=== PATIENT | female | born 1950 | race Hispanic/Latino ===

== ENCOUNTER 2019-04-18 13:31 | Inpatient (IN) | payer MEDICARE ==
--- NOTE | 2019-04-18 13:48 | Emergency Department Report ---
ED General Adult HPI - General Chief complaint: Weakness Stated complaint: AMS Time Seen by Provider: 04/18/19 13:45 Source: family, EMS (verbal report received from emergency medical services. EMS documentation not available at this time for review), RN notes reviewed Mode of arrival: Stretcher Limitations: Altered Mental Status, Physical Limitation - History of Present Illness Initial comments: Primary care DrDian: Dr. Marlow Nephrology: Gucci Patient is a 68-year-old female, on hemodialysis, end-stage renal disease, brought to the hospital by EMS for lethargy, decreased responsiveness, weakness. Last known well time 3 days ago. Patient altered, not able to provide additional history. Daughters are at the bedside, the indicates they're not quite sure of the qualitative nature of her symptoms, exacerbating or relieving factors. Upon arrival to the emergency room, patient was altered, nonverbal, with no gag reflex, and dry mucous membranes. I strongly recommended endotracheal intubation. Patient's daughters have declined this intervention. The risks of not placing an advanced airway, including aspiration, , disability, paralysis, loss of quality of life, discussed with both the patient's daughters. However, they have made a decision to provide informed refusal for endotracheal intubation. They are amenable to IV fluids, antibiotics and supportive care otherwise. They also signed a DO NOT RESUSCITATE, DO NOT INTUBATE. This entire conversation was witnessed by multiple nurses, including Claudia Sharma, and Mariaelena To. At the moment, patient is resting on her stretcher, head of bed elevated, on a nonrebreather, not able to provide additional information or history. -: days(s) Quality: other Consistency: other Improves with: other Worsens with: other Associated Symptoms: other - Related Data Allergies Allergy/AdvReac Type Severity Reaction Status Date / Time Insulins Allergy Hives Verified 04/18/19 14:15 iron Allergy Hives Verified 04/18/19 14:15 isosorbide Allergy Hives Verified 04/18/19 14:15 ondansetron [From Zofran] Allergy Hives Verified 04/18/19 14:15 ED Review of Systems ROS: Stated complaint: AMS Other details as noted in HPI Comment: Unobtainable due to pts medical conditions ED Physical Exam - General Limitations: Altered Mental Status General appearance: obtunded - Head Head exam: Present: atraumatic, normocephalic - ENT ENT exam: Present: mucous membranes dry - Neck Neck exam: Present: normal inspection - Respiratory Respiratory exam: Present: decreased breath sounds. Absent: wheezes, rales, rhonchi, stridor - Cardiovascular Cardiovascular Exam: Present: normal rhythm, tachycardia. Absent: bradycardia - GI/Abdominal GI/Abdominal exam: Present: soft. Absent: distended, tenderness, guarding, rebound, rigid, pulsatile mass - Extremities Exam Extremities exam: Present: other (pulses appreciated in the bilateral upper and lower extremities. There is a right upper extremity fistula, with no redness, pus or streaking). Absent: pedal edema, calf tenderness - Back Exam Back exam: Absent: tenderness, CVA tenderness (R), paraspinal tenderness, vertebral tenderness - Neurological Exam Neurological exam: Present: altered, other (nonverbal, does not move arms or l egs, does not open eyes spontaneously) - Psychiatric Psychiatric exam: Present: other (the patient is nonverbal) - Skin Skin exam: Present: dry ED Course Vital Signs 04/18/19 04/18/19 04/18/19 13:40 13:46 14:01 Temperature Pulse Rate 133 H 126 H 132 H Respiratory 19 19 38 H Rate Blood Pressure 150/70 140/57 O2 Sat by Pulse 96 Oximetry 04/18/19 04/18/19 04/18/19 14:15 14:22 14:30 Temperature 101.7 F H Pulse Rate 128 H 123 H Respiratory 41 H 38 H Rate Blood Pressure 155/70 148/64 O2 Sat by Pulse 95 95 Oximetry 04/18/19 04/18/19 04/18/19 14:45 15:00 15:15 Temperature Pulse Rate 116 H 110 H 108 H Respiratory 37 H 29 H 33 H Rate Blood Pressure 148/64 142/49 142/49 O2 Sat by Pulse 94 97 99 Oximetry 04/18/19 04/18/19 04/18/19 15:31 15:45 16:19 Temperature Pulse Rate 115 H 114 H 108 H Respiratory 41 H 36 H 14 Rate Blood Pressure 161/71 161/71 161/71 O2 Sat by Pulse 97 99 Oximetry 04/18/19 04/18/19 04/18/19 16:30 16:45 17:11 Temperature 99.8 F H Pulse Rate 108 H 107 H Respiratory 34 H 35 H Rate Blood Pressure 156/69 156/69 O2 Sat by Pulse 72 L 98 Oximetry - Reevaluation(s) Reevaluation #1: 04/18/19 15:05 Differential diagnosis, including but not limited to: Pneumonia, urinary tract infection, intracranial hemorrhage, bacteremia, viremia, uremic encephalopathy Assessment and plan: 68-year-old female, with a signed DO NOT RESUSCITATE, DO NOT INTUBATE with family, found to be tachycardic, febrile, concerning for sepsis. Patient will be resuscitated according to the sepsis pathway. Antibiotics ordered, CT scan brain, abdomen and pelvis ordered. Urinalysis is pending at this time. Nephrology consultation is pending at this time. Prognosis is guarded. Reevaluation #2: 04/18/19 15:31 dw/ renal vest front presser Dr Aimee Palacios awaiting ct results Reevaluation #3: 04/18/19 17:34 CT scan brain negative for acute disease. CT scan abdomen and pelvis is negative for acute disease. Respiratory effort has improved. Patient still unchanged neurologically. Extensive discussion had with family. We discussed diagnostics, and potential for spinal tap. At this point time, family does not want a spinal tap. We discussed implications of this decision. They are still amenable to hospitalization, fluids and antibiotic therapy. Family has provided informed refusal/decline of spinal tap procedure. Case was in the hospital physician, Dr. Adrian Esteves, who accepts the patient. ED Medical Decision Making - Lab Data Result diagrams: 04/18/19 13:56 04/18/19 13:56 Vital Signs 04/18/19 04/18/19 04/18/19 13:40 13:46 14:01 Temperature Pulse Rate 133 H 126 H 132 H Respiratory 19 19 38 H Rate Blood Pressure 150/70 140/57 O2 Sat by Pulse 96 Oximetry 04/18/19 04/18/19 14:15 14:22 Temperature 101.7 F H Pulse Rate 128 H Respiratory 41 H Rate Blood Pressure 155/70 O2 Sat by Pulse 95 Oximetry Lab Results 04/18/19 04/18/19 04/18/19 Range/Units 13:56 13:56 14:14 WBC 18.3 H (4.5-11.0) K/mm3 RBC 5.19 H (3.65-5.03) M/mm3 Hgb 14.4 H (10.1-14.3) gm/dl Hct 45.4 H (30.3-42.9) % MCV 88 (79-97) fl MCH 28 (28-32) pg MCHC 32 (30-34) % RDW 18.2 H (13.2-15.2) % Plt Count 406 (140-440) K/mm3 Seg Neutrophils % [employer]er APTT 26.7 (24.2-36.6) Sec. ABG pH 7.330 L (7.350-7.450) pH Units ABG pCO2 46.7 mm Hg ABG pO2 98.6 H (80.0-90.0) mm Hg ABG HCO3 24.0 (20.0-26.0) mmol/L ABG O2 Saturation 97.0 (95.0-99.0) % ABG O2 Content 19.6 (0.0-44) ABG Base Excess -2.2 L (-2.0-3.0) mmol/L ABG Hemoglobin 14.6 (12.0-16.0) gm/dl ABG Carboxyhemoglobin 1.2 (0.0-5.0) % ABG Methemoglobin 0.6 (0.0-1.5) % Oxyhemoglobin 95.3 (95.0-99.0) % FiO2 100 % POC Glucose (70-105) 04/18/19 Range/Units 14:16 WBC (4.5-11.0) K/mm3 RBC (3.65-5.03) M/mm3 Hgb (10.1-14.3) gm/dl Hct (30.3-42.9) % MCV (79-97) fl MCH (28-32) pg MCHC (30-34) % RDW (13.2-15.2) % Plt Count (140-440) K/mm3 Seg Neutrophils % APTT (24.2-36.6) Sec. ABG pH (7.350-7.450) pH Units ABG pCO2 mm Hg ABG pO2 (80.0-90.0) mm Hg ABG HCO3 (20.0-26.0) mmol/L ABG O2 Saturation (95.0-99.0) % ABG O2 Content (0.0-44) ABG Base Excess (-2.0-3.0) mmol/L ABG Hemoglobin (12.0-16.0) gm/dl ABG Carboxyhemoglobin (0.0-5.0) % ABG Methemoglobin (0.0-1.5) % Oxyhemoglobin (95.0-99.0) % FiO2 % POC Glucose 214 H (70-105) - EKG Data Rate: tachycardia - EKG Data When compared to previous EKG there are: previous EKG unavailable - Radiology Data Radiology results: image reviewed interpreted by me: xr chest: no acute disease Critical Care Time: Yes Critical care time in (mins) excluding proc time.: 35 Critical care attestation.: If time is entered above; I have spent that time in minutes in the direct care of this critically ill patient, excluding procedure time. ED Disposition Clinical Impression: Sepsis, Uremic encephalopathy, ESRD (end stage renal disease), Hypernatremia Disposition: DC-[id number] OP ADMIT IP TO THIS HOSP Is pt being admited?: Yes Condition: Serious
[2019-04-18] MEDS ORDERED: SODIUM CHLORIDE 0.9% 1000 ML IV SOLN IV ONE (13:51)
[2019-04-18] MEDS ORDERED: DEXTROSE 50% IN WATER (25GM) 50 ML SYRINGE IV SCH (14:00)
[2019-04-18 14:19] LABS: Hematocrit 45.4 % (30.3-42.9); Hemoglobin 14.4 gm/dl (10.1-14.3); Mean Corpuscular HGB Conc 32 % (30-34); Mean Corpuscular Volume 88 fl (79-97); Platelet Count 406 K/mm3 (140-440); Red Blood Count 5.19 M/mm3 (3.65-5.03); Red Cell Distribution Width 18.2 % (13.2-15.2)
[2019-04-18 14:27] LABS: ABG Base Excess -2.2 mmol/L (-2.0-3.0); ABG Methemoglobin 0.6 % (0.0-1.5); ABG PCO2 46.7 mm Hg; ABG PH 7.33 pH Units (7.350-7.450); ABG PO2 98.6 mm Hg (80.0-90.0)
[2019-04-18 14:32] LABS: Partial Thromboplastin Time 26.7 Sec. (24.2-36.6)
[2019-04-18 14:40] LABS: Albumin 3.6 g/dL (3.9-5); Calcium 10.9 mg/dL (8.4-10.2)
[2019-04-18 14:42] LABS: INR 1.2 (0.87-1.13)
[2019-04-18] MEDS ORDERED: ACETAMINOPHEN 650 MG RECT SUPP PR ONE (14:49)
[2019-04-18] MEDS ORDERED: cefTRIAXone/NS 2 GM/100 ML 2 GM/100 ML BAG IV ONE (15:00)
--- NOTE | 2019-04-18 15:10 | XRay Report ---
CHEST 1 VIEW 04/18/2019 2:23 PM INDICATION / CLINICAL INFORMATION: Altered Mental Status. COMPARISON: None available. FINDINGS: SUPPORT DEVICES: None. HEART / MEDIASTINUM: No significant abnormality. LUNGS / PLEURA: No significant pulmonary or pleural abnormality. No pneumothorax. ADDITIONAL FINDINGS: There is severe generalized atherosclerosis. Degenerative changes are seen throu ghout the spine. No significant additional findings. IMPRESSION: 1. No acute abnormality of the chest. Signer Name: Ruben Scruggs MD Signed: 04/18/2019 3:06 PM Workstation Name: [id number]
[2019-04-18 15:25] LABS: Chol/HDL Ratio 8.93 %
[2019-04-18 17:05] LABS: Bilirubin,Urine NEG (Negative); Blood,Urine NEG (Negative); Color,Urine Yellow (Yellow); Urobilinogen,Urine < 2.0 mg/dL (<2.0)
[2019-04-18 17:08] LABS: Amphetamine Screen,Urine PRESUMPTIVE NEGATIVE; Benzodiazepines Screen,Urine PRESUMPTIVE NEGATIVE; Cannabinoid Screen,Urine PRESUMPTIVE NEGATIVE; Cocaine Screen,Urine PRESUMPTIVE NEGATIVE; Methadone Screen,Urine PRESUMPTIVE NEGATIVE; Opiate Screen,Urine PRESUMPTIVE NEGATIVE
--- NOTE | 2019-04-18 17:18 | Cat Scan Report ---
CT BRAIN: 04/18/2019 INDICATION / CLINICAL INFORMATION: Altered Mental Status. COMPARISON: None available. FINDINGS: BRAIN/INTRACRANIAL STRUCTURES: Unenhanced CT images of the brain demonstrate pronounced diffuse cereb ral atrophy, associated with extensive chronic white matter hypoattenuation. Numerous chronic appeari ng foci of lacunar changes are present in the basal ganglia and thalami bilaterally. There is evidence of some cortical edema in the left lateral inferior frontal lobe, possibly extendin g into the anterior insula cortex, over an area of approximately 4 cm, which may be evidence of acute or recent cortical ischemic injury. This could be further evaluated with MRI as necessary. There is no evidence of hemorrhage. Atherosclerotic vascular calcifications are present in the distal internal carotid arteries and verte bral arteries. EXTRACRANIAL STRUCTURES: Unremarkable. IMPRESSION: 1. Extensive diffuse cerebral atrophy and chronic white matter signal change. 2. Possible recent or acute left frontal cortical infarct. All CT scans at this location are performed using dose reduction to ALARA by means of automated expos ure control. Signer Name: Mateo Patino MD Signed: 04/18/2019 5:13 PM Workstation Name: [id number]
--- NOTE | 2019-04-18 17:20 | Cat Scan Report ---
CT ABDOMEN AND PELVIS WITHOUT CONTRAST INDICATION: Sepsis. Altered mental status. Weakness. COMPARISON: No relevant prior imaging study available. TECHNIQUE: Axial, coronal and sagittal CT imaging of the abdomen and pelvis was performed without co ntrast. Lack of intravenous contrast limits evaluation of the vascular and solid organs. All CT sca ns at this location are performed using CT dose reduction for ALARA by means of automated exposure co ntrol. FINDINGS: LOWER CHEST: Right basilar atelectasis is noted. There is diffuse coronary atherosclerosis and mild t horacic aortic atherosclerosis. No additional significant abnormality. LIVER: No significant abnormality. BILIARY: Cholelithiasis is seen without evidence of acute cholecystitis. No biliary ductal dilatation . PANCREAS: No significant abnormality. SPLEEN: No significant abnormality. ADRENALS: The right adrenal gland is unremarkable. There is a left adrenal myelolipoma measuring 1.9 x 1.8 cm. KIDNEYS AND URETERS: Bilateral renal cysts measure up to 2.7 cm on the right and 2.5 cm on the left. No additional significant abnormality. GI TRACT: No significant abnormality of the stomach, small bowel or colon. The appendix is not seen. PERITONEUM: No free fluid. No free air. No fluid collection. LYMPH NODES: No significant adenopathy. VASCULATURE: The aorta is normal in caliber. There is severe generalized atherosclerosis. URINARY BLADDER: No significant abnormality. REPRODUCTIVE ORGANS: Mild enlargement of the uterus may be secondary to uterine fibroids. No addition al significant abnormality. ADDITIONAL FINDINGS: None. SKELETAL SYSTEM: No acute abnormality. Mild degenerative changes are seen along the spine and SI join ts. IMPRESSION: 1. No acute abnormality of the abdomen or pelvis. 2. Additional findings as above. Signer Name: Ruben Scruggs MD Signed: 04/18/2019 5:16 PM Workstation Name: [id number]
[2019-04-18 17:24] LABS: Mucus,Urine Few /HPF
[2019-04-18 19:53] LABS: Basophils % (Manual) 0 % (0.0-1.8); Eosinophils % (Manual) 0 % (0.0-4.3); Stomatocytes Few; Total Cells Counted 100
[2019-04-18 19:54] LABS: Platelet Estimate Consistent w Auto
[2019-04-18] MEDS ORDERED: METOCLOPRAMIDE 10 MG/2 ML INJ IV PRN ×2 (22:54→23:01)
[2019-04-18] MEDS ORDERED: MORPHINE 2 MG/1 ML INJ IV PRN (22:54)
[2019-04-18] MEDS ORDERED: ACETAMINOPHEN 325 MG TAB PO PRN (22:54)
[2019-04-18] MEDS ORDERED: ONDANSETRON 4 MG/2 ML INJ IV PRN (22:54)
[2019-04-18] MEDS ORDERED: HYDROmorphone 1 MG/1 ML INJ IV PRN (22:54)
[2019-04-19] MEDS ORDERED: SODIUM CHLORIDE 0.9% 250ML 250 ML IV ONE (00:24)
[2019-04-19] MEDS: DEXTROSE 5% IN WATER 1,000 ML IV SCH (00:46)
[2019-04-19 05:04] LABS: Mean Corpuscular HGB Conc 31 % (30-34); Mean Corpuscular Volume 91 fl (79-97); Platelet Count 294 K/mm3 (140-440); Red Blood Count 5.03 M/mm3 (3.65-5.03); Red Cell Distribution Width 18.8 % (13.2-15.2)
[2019-04-19 05:27] LABS: Hematocrit 45.6 % (30.3-42.9)
[2019-04-19 06:41] LABS: Basophils % (Manual) 0 % (0.0-1.8); Eosinophils % (Manual) 0 % (0.0-4.3); Total Cells Counted 100
[2019-04-19 06:42] LABS: Ovalocytes Rare; Platelet Estimate Consistent w Auto; Schistocytes Rare
--- NOTE | 2019-04-19 07:18 | History and Physical Report ---
History of Present Illness Date of examination: 04/18/19 Date of admission: 04/18/19 17:40 Chief complaint: Decreased rtesponsiveness 1 week History of present illness: Patient is a 68-year-old female, on hemodialysis, end-stage renal disease, brought to the hospital by EMS for lethargy, decreased responsiveness, weakness. Last known well time 3 days ago. Patient altered, not able to provide additional history. Daughters are at the bedside, the indicates they're not quite sure of the qualitative nature of her symptoms, exacerbating or relieving factors. Upon arrival to the emergency room, patient was altered, nonverbal, with no gag reflex, and dry mucous membranes. Patient apparently had CVA with Lt side weakness and near aphasic.Apparently daughters were carrying from bed to wheel chair and transferring to car for taking to HD.Also feeding the patient every day.Patient apparently says yes or no and smiles sometimes. Has deteriorated over last one week and not eating at all.Became more lethargic.Fever today Family wants DNR. Past History Past Medical History: hypertension, stroke Past Surgical History: No surgical history Social history: lives with family, AND/DNR-allow natural Family history: hypertension Medications and Allergies Allergies Allergy/AdvReac Type Severity Reaction Status Date / Time Insulins Allergy Hives Verified 04/18/19 14:15 iron Allergy Hives Verified 04/18/19 14:15 isosorbide Allergy Hives Verified 04/18/19 14:15 ondansetron [From Zofran] Allergy Hives Verified 04/18/19 14:15 Active Meds: Active Medications Acetaminophen (Tylenol) 650 mg PO Q4H PRN PRN Reason: Pain MILD(1-3)/Fever >100.5/MCDANIELS Dextrose (D50w (25gm) Syringe) 50 ml IV PRN TRINA Famotidine (Pepcid) 10 mg IV BID TRINA Hydromorphone HCl (Dilaudid) 0.5 mg IV Q3H PRN PRN Reason: Pain , Severe (7-10) Dextrose (D5w) 1,000 mls @ 75 mls/hr IV DIRECT TRINA Last Admin: 04/19/19 00:46 Dose: 75 mls/hr Documented by: Ceftriaxone Sodium (Rocephin/Ns 1 Gm/50 Ml) 1 gm in 50 mls @ 100 mls/hr IV Q24HR [facility]; Protocol Metoclopramide HCl (Reglan) 2.5 mg IV Q6H PRN PRN Reason: Nausea And Vomiting Last Admin: 04/19/19 01:29 Dose: 2.5 mg Documented by: Morphine Sulfate (Morphine) 2 mg IV Q4H PRN PRN Reason: Pain, Moderate (4-6) Sodium Chloride (Sodium Chloride Flush Syringe 10 Ml) 10 ml IV BID TRINA Sodium Chloride (Sodium Chloride Flush Syringe 10 Ml) 10 ml IV PRN PRN PRN Reason: LINE FLUSH Review of Systems All systems: negative Constitutional: weight loss, weakness, poor appetite, daytime sleepiness Ears, nose, mouth and throat: deferred Breasts: deferred Cardiovascular: no chest pain, no orthopnea, no palpitations, no rapid/irregular heart beat, no edema, no syncope Respiratory: no cough, no cough with sputum, no excessive sputum, no hemoptysis, no shortness of breath, no dyspnea on exertion Gastrointestinal: other (Difficulty swallowing), no abdominal pain, no nausea, no vomiting, no diarrhea, no constipation, no change in bowel habits, no hematemesis, no coffee ground emesis Genitourinary Female: no dysuria, no urinary frequency Menstruation: ammenorrhea Rectal: no pain Musculoskeletal: no neck stiffness, no neck pain, no shooting arm pain Integumentary: no rash, no pruritis, no redness Neurological: aphasia, gait dysfunction, motor disturbance, paralysis (LEFT Hemiplegia) Psychiatric: change in appetite Endocrine: no cold intolerance Hematologic/Lymphatic: no easy bruising Allergic/Immunologic: no urticaria, no allergic rhinitis, no wheezing Exam - Constitutional Vitals: Temp Pulse Resp BP Pulse Ox 97.3 F L 109 H 16 137/17 95 04/19/19 00:03 04/18/19 19:41 04/19/19 00:03 04/19/19 00:03 04/19/19 00:13 General appearance: Present: no acute distress, well-nourished - EENT Eyes: Present: PERRL ENT: hearing intact, clear oral mucosa - Neck Neck: Present: supple, normal ROM - Respiratory Respiratory effort: normal Respiratory: bilateral: CTA - Cardiovascular Heart rate: 78 Rhythm: regular Heart Sounds: Present: S1 & S2. Absent: rub, click - Extremities Extremities: no ischemia, pulses intact, pulses symmetrical, No edema Peripheral Pulses: within normal limits - Abdominal General gastrointestinal: Present: soft, non-tender, non-distended, normal bowel sounds Female genitourinary: Present: normal - Integumentary Integumentary: Present: clear, warm, dry - Musculoskeletal Musculoskeletal: left sided weakness - Psychiatric Psychiatric: other (Decreased responsiveness) - Neurologic Neurologic: CNII-XII intact, focal deficits - Allied Health Allied health notes reviewed: nursing, case management Results - Labs CBC & Chem 7: 04/19/19 03:45 04/18/19 13:56 Labs: Laboratory Last Values WBC 28.7 K/mm3 (4.5-11.0) H 04/19/19 03:45 RBC 5.03 M/mm3 (3.65-5.03) 04/19/19 03:45 Hgb 14.0 gm/dl (10.1-14.3) 04/19/19 03:45 Hct 45.6 % (30.3-42.9) H 04/19/19 03:45 MCV 91 fl (79-97) 04/19/19 03:45 MCH 28 pg (28-32) 04/19/19 03:45 MCHC 31 % (30-34) 04/19/19 03:45 RDW 18.8 % (13.2-15.2) H 04/19/19 03:45 Plt Count 294 K/mm3 (140-440) 04/19/19 03:45 Add Manual Diff Complete 04/19/19 03:45 Total Counted 100 04/19/19 03:45 Seg Neutrophils % Wan Support Specialist 04/18/19 13:56 Seg Neuts % (Manual) 90.0 % (40.0-70.0) H 04/19/19 03:45 Band Neutrophils % 0 % 04/19/19 03:45 Lymphocytes % (Manual) 3.0 % (13.4-35.0) L 04/19/19 03:45 Reactive Lymphs % (Man) 0 % 04/19/19 03:45 Monocytes % (Manual) 7.0 % (0.0-7.3) 04/19/19 03:45 Eosinophils % (Manual) 0 % (0.0-4.3) 04/19/19 03:45 Basophils % (Manual) 0 % (0.0-1.8) 04/19/19 03:45 Metamyelocytes % 0 % 04/19/19 03:45 Myelocytes % 0 % 04/19/19 03:45 Promyelocytes % 0 % 04/19/19 03:45 Blast Cells % 0 % 04/19/19 03:45 Nucleated RBC % Not Reportable 04/19/19 03:45 Seg Neutrophils # Man 25.8 K/mm3 (1.8-7.7) H 04/19/19 03:45 Band Neutrophils # 0.0 K/mm3 04/19/19 03:45 Lymphocytes # (Manual) 0.9 K/mm3 (1.2-5.4) L 04/19/19 03:45 Abs React Lymphs (Man) 0.0 K/mm3 04/19/19 03:45 Monocytes # (Manual) 2.0 K/mm3 (0.0-0.8) H 04/19/19 03:45 Eosinophils # (Manual) 0.0 K/mm3 (0.0-0.4) 04/19/19 03:45 Basophils # (Manual) 0.0 K/mm3 (0.0-0.1) 04/19/19 03:45 Metamyelocytes # 0.0 K/mm3 04/19/19 03:45 Myelocytes # 0.0 K/mm3 04/19/19 03:45 Promyelocytes # 0.0 K/mm3 04/19/19 03:45 Blast Cells # 0.0 K/mm3 04/19/19 03:45 WBC Morphology Not Reportable 04/19/19 03:45 Hypersegmented Neuts Not Reportable 04/19/19 03:45 Hyposegmented Neuts Not Reportable 04/19/19 03:45 Hypogranular Neuts Not Reportable 04/19/19 03:45 Smudge Cells Not Reportable 04/19/19 03:45 Toxic Granulation Not Reportable 04/19/19 03:45 Toxic Vacuolation Not Reportable 04/19/19 03:45 Dohle Bodies Not Reportable 04/19/19 03:45 Pelger-Huet Anomaly Not Reportable 04/19/19 03:45 Troy Rods Not Reportable 04/19/19 03:45 Platelet Estimate Consistent w auto 04/19/19 03:45 Clumped Platelets Not Reportable 04/19/19 03:45 Plt Clumps, EDTA Not Reportable 04/19/19 03:45 Large Platelets Not Reportable 04/19/19 03:45 Giant Platelets Not Reportable 04/19/19 03:45 Platelet Satelliting Not Reportable 04/19/19 03:45 Plt Morphology Comment Not Reportable 04/19/19 03:45 RBC Morphology Not Reportable 04/19/19 03:45 Dimorphic RBCs Not Reportable 04/19/19 03:45 Polychromasia Not Reportable 04/19/19 03:45 Hypochromasia Not Reportable 04/19/19 03:45 Poikilocytosis Not Reportable 04/19/19 03:45 Anisocytosis Not Reportable 04/19/19 03:45 Microcytosis Not Reportable 04/19/19 03:45 Macrocytosis Not Reportable 04/19/19 03:45 Spherocytes Not Reportable 04/19/19 03:45 Pappenheimer Bodies Not Reportable 04/19/19 03:45 Sickle Cells Not Reportable 04/19/19 03:45 Target Cells Not Reportable 04/19/19 03:45 Tear Drop Cells Not Reportable 04/19/19 03:45 Ovalocytes Rare 04/19/19 03:45 Stomatocytes Few 04/18/19 13:56 Helmet Cells Not Reportable 04/19/19 03:45 Das-Lithium Bodies Not Reportable 04/19/19 03:45 [place] Rings Not Reportable 04/19/19 03:45 [place] Cells Not Reportable 04/19/19 03:45 Bite Cells Not Reportable 04/19/19 03:45 Crenated Cell Not Reportable 04/19/19 03:45 Elliptocytes Not Reportable 04/19/19 03:45 Acanthocytes (Spur) Not Reportable 04/19/19 03:45 Rouleaux Not Reportable 04/19/19 03:45 Hemoglobin C Crystals Not Reportable 04/19/19 03:45 Schistocytes Rare 04/19/19 03:45 Malaria parasites Not Reportable 04/19/19 03:45 Cornell Bodies Not Reportable 04/19/19 03:45 Hem Pathologist Commnt No 04/19/19 03:45 PT 15.4 Sec. (12.2-14.9) H 04/18/19 13:56 INR 1.20 (0.87-1.13) H 04/18/19 13:56 APTT 26.7 Sec. (24.2-36.6) 04/18/19 13:56 ABG pH 7.330 pH Units (7.350-7.450) L 04/18/19 14:14 ABG pCO2 46.7 mm Hg 04/18/19 14:14 ABG pO2 98.6 mm Hg (80.0-90.0) H 04/18/19 14:14 ABG HCO3 24.0 mmol/L (20.0-26.0) 04/18/19 14:14 ABG O2 Saturation 97.0 % (95.0-99.0) 04/18/19 14:14 ABG O2 Content 19.6 (0.0-44) 04/18/19 14:14 ABG Base Excess -2.2 mmol/L (-2.0-3.0) L 04/18/19 14:14 ABG Hemoglobin 14.6 gm/dl (12.0-16.0) 04/18/19 14:14 ABG Carboxyhemoglobin 1.2 % (0.0-5.0) 04/18/19 14:14 ABG Methemoglobin 0.6 % (0.0-1.5) 04/18/19 14:14 Oxyhemoglobin 95.3 % (95.0-99.0) 04/18/19 14:14 FiO2 100 % 04/18/19 14:14 Sodium 163 mmol/L (137-145) H* 04/18/19 13:56 Potassium 4.5 mmol/L (3.6-5.0) 04/18/19 13:56 Chloride 119.7 mmol/L (98-107) H 04/18/19 13:56 Carbon Dioxide 20 mmol/L (22-30) L 04/18/19 13:56 Anion Gap 28 mmol/L 04/18/19 13:56 BUN 117 mg/dL (7-17) H 04/18/19 13:56 Creatinine 7.0 mg/dL (0.7-1.2) H 04/18/19 13:56 Estimated GFR 6 ml/min 04/18/19 13:56 BUN/Creatinine Ratio 17 % 04/18/19 13:56 Glucose 235 mg/dL (65-100) H 04/18/19 13:56 POC Glucose 214 (70-105) H 04/18/19 14:16 Hemoglobin A1c 5.8 % (4-6) 04/19/19 00:04 Lactic Acid 1.70 mmol/L (0.7-2.0) 04/18/19 16:24 Calcium 10.9 mg/dL (8.4-10.2) H 04/18/19 13:56 Magnesium 3.20 mg/dL (1.7-2.3) H 04/18/19 13:56 Total Bilirubin 0.70 mg/dL (0.1-1.2) 04/18/19 13:56 AST 147 units/L (5-40) H 04/18/19 13:56 ALT 169 units/L (7-56) H 04/18/19 13:56 Alkaline Phosphatase 98 units/L (35-129) 04/18/19 13:56 Ammonia 78.0 umol/L (25-60) H 04/19/19 00:04 Total Creatine Kinase 94 units/L (30-135) 04/18/19 13:56 Troponin T 2.840 ng/mL (0.00-0.029) H* 04/18/19 13:56 Total Protein 7.4 g/dL (6.3-8.2) 04/18/19 13:56 Albumin 3.6 g/dL (3.9-5) L 04/18/19 13:56 Albumin/Globulin Ratio 0.9 % 04/18/19 13:56 Triglycerides 289 mg/dL (2-149) H 04/18/19 13:56 Cholesterol 259 mg/dL (50-199) H 04/18/19 13:56 LDL Cholesterol Direct 166 mg/dL (50-130) H 04/18/19 13:56 HDL Cholesterol 29 mg/dL (40-59) L 04/18/19 13:56 Cholesterol/HDL Ratio 8.93 % 04/18/19 13:56 TSH 0.322 mlU/mL (0.270-4.200) 04/18/19 13:56 Free T4 1.33 ng/dL (0.76-1.46) 04/18/19 13:56 Urine Color Yellow (Yellow) 04/18/19 16:37 Urine Turbidity Cloudy (Clear) 04/18/19 16:37 Urine pH 5.0 (5.0-7.0) 04/18/19 16:37 Ur Specific [place] 1.014 (1.003-1.030) 04/18/19 16:37 Urine Protein 100 mg/dl mg/dL (Negative) 04/18/19 16:37 Urine Glucose (UA) 50 mg/dL (Negative) 04/18/19 16:37 Urine Ketones Neg mg/dL (Negative) 04/18/19 16:37 Urine Blood Neg (Negative) 04/18/19 16:37 Urine Nitrite Neg (Negative) 04/18/19 16:37 Urine Bilirubin Neg (Negative) 04/18/19 16:37 Urine Urobilinogen < 2.0 mg/dL (<2.0) 04/18/19 16:37 Ur Leukocyte Esterase Neg (Negative) 04/18/19 16:37 Urine WBC (Auto) 1.0 /HPF (0.0-6.0) 04/18/19 16:37 Urine RBC (Auto) 1.0 /HPF (0.0-6.0) 04/18/19 16:37 U Epithel Cells (Auto) 9.0 /HPF (0-13.0) 04/18/19 16:37 Urine Mucus Few /HPF 04/18/19 16:37 Salicylates < 0.3 mg/dL (2.8-20.0) L 04/18/19 13:56 Urine Opiates Screen Presumptive negative 04/18/19 16:37 Urine Methadone Screen Presumptive negative 04/18/19 16:37 Acetaminophen < 5.0 ug/mL (10.0-30.0) L 04/18/19 13:56 Ur Barbiturates Screen Presumptive negative 04/18/19 16:37 Ur Phencyclidine Scrn Presumptive negative 04/18/19 16:37 Ur Amphetamines Screen Presumptive negative 04/18/19 16:37 U Benzodiazepines Scrn Presumptive negative 04/18/19 16:37 Urine Cocaine Screen Presumptive negative 04/18/19 16:37 U Marijuana (THC) Screen Presumptive negative 04/18/19 16:37 Drugs of Abuse Note Disclamer 04/18/19 16:37 Plasma/Serum Alcohol < 0.01 % (0-0.07) 04/18/19 13:56 Blood Type A POSITIVE 04/18/19 13:56 Antibody Screen Negative 04/18/19 13:56 - Imaging and Cardiology EKG: report reviewed Chest x-ray: report reviewed (NAF) CT scan - abdomen: report reviewed (NAF) Imaging and Cardiology: Head CT IMPRESSION: 1. Extensive diffuse cerebral atrophy and chronic white matter signal change. 2. Possible recent or acute left frontal cortical infarct. Assessment and Plan Advance Directives: Yes (DNR) VTE prophylaxis?: Chemical Plan of care discussed with patient/family: Yes - Patient Problems (1) Acute encephalopathy Current Visit: Yes Status: Acute Plan to address problem: Multifactorial Acute CVA? Uremia (2) Acute CVA (cerebrovascular accident) Current Visit: Yes Status: Acute Plan to address problem: CVA w/u (3) Dysphagia Current Visit: Yes Status: Acute Qualifiers: Dysphagia type: oral phase Qualified Code(s): R13.11 - Dysphagia, oral phase Plan to address problem: MBS ordered Discussed PEG tube (4) ESRD (end stage renal disease) Current Visit: Yes Status: Chronic Plan to address problem: Cont HD (5) Hypernatremia Current Visit: Yes Status: Acute Plan to address problem: D5w for now (6) Sepsis Current Visit: Yes Status: Acute Qualifiers: Sepsis acute organ dysfunction status: unspecified Plan to address problem: Empiric abx No source of infection identified (7) DVT prophylaxis Current Visit: Yes Status: Acute Plan to address problem: Obn Heparin and GI prophylaxis
[2019-04-19 07:20] LABS: Alanine Aminotransferase 160 units/L (7-56); Albumin 3.2 g/dL (3.9-5); Hemolysis Index 2
[2019-04-19 07:39] LABS: BUN/Creatinine Ratio 14; Blood Urea Nitrogen > 111 mg/dL (7-17)
[2019-04-19] MEDS ORDERED: SODIUM CHLORIDE 0.9% 100 ML IV PRN ×2 (09:00)
--- NOTE | 2019-04-19 10:06 | Consultation ---
History of Present Illness - Reason for Consult end stage renal disease - History of Present Illness Frail elderly eastern female with PMHx of ESRD in the serrint og DM and HTN, with prevoius h/o CVA, brought in by family for progressively worsening weakness and altered mental status over the past week. Patient has not had dialysis for this past week secondary to the aforementioned weakness. Nephrology consulted secondary to chronic dialysis needs. Her overall appetite has also declined during this time period. Past History Past Medical History: hypertension, stroke Past Surgical History: No surgical history Social history: lives with family, AND/DNR-allow natural Family history: hypertension Medications and Allergies Allergies Allergy/AdvReac Type Severity Reaction Status Date / Time Insulins Allergy Hives Verified 04/18/19 14:15 iron Allergy Hives Verified 04/18/19 14:15 isosorbide Allergy Hives Verified 04/18/19 14:15 ondansetron [From Zofran] Allergy Hives Verified 04/18/19 14:15 Active Meds: Active Medications Acetaminophen (Tylenol) 650 mg PO Q4H PRN PRN Reason: Pain MILD(1-3)/Fever >100.5/MCDANIELS Aspirin (Aspirin) 325 mg PO QDAY [facility] Atorvastatin Calcium (Lipitor) 40 mg PO QHS [facility] Dextrose (D50w (25gm) Syringe) 50 ml IV PRN TRINA Famotidine (Pepcid) 10 mg IV BID TRINA Hydromorphone HCl (Dilaudid) 0.5 mg IV Q3H PRN PRN Reason: Pain , Severe (7-10) Dextrose (D5w) 1,000 mls @ 75 mls/hr IV DIRECT TRINA Last Admin: 04/19/19 00:46 Dose: 75 mls/hr Documented by: Ceftriaxone Sodium (Rocephin/Ns 1 Gm/50 Ml) 1 gm in 50 mls @ 100 mls/hr IV Q24HR [facility]; Protocol Sodium Chloride (Nacl 0.9%) 100 mls @ 999 mls/hr IV SHANNAN PRN PRN Reason: Hypotension Metoclopramide HCl (Reglan) 2.5 mg IV Q6H PRN PRN Reason: Nausea And Vomiting Last Admin: 04/19/19 01:29 Dose: 2.5 mg Documented by: Morphine Sulfate (Morphine) 2 mg IV Q4H PRN PRN Reason: Pain, Moderate (4-6) Sodium Chloride (Sodium Chloride Flush Syringe 10 Ml) 10 ml IV BID TRINA Sodium Chloride (Sodium Chloride Flush Syringe 10 Ml) 10 ml IV PRN PRN PRN Reason: LINE FLUSH Sodium Chloride (Sodium Chloride Flush Syringe 10 Ml) 10 ml IV PRN PRN PRN Reason: LINE FLUSH Review of Systems ROS unobtainable: due to mental status Exam - Vital Signs Vital signs: Vital Signs Pulse Resp 133 H 19 04/18/19 13:40 04/18/19 13:40 - General Appearance General appearance: cachectic, chronically ill, frail EENT: ATNC, PERRL Neck: Present: neck supple Respiratory: Wheezes Heart: regular, S1S2 Gastrointestinal: Present: normal Integumentary: warm and dry Neurologic: other (lethargic ) Musculoskeletal: Present: deferred Results - Lab Results 04/19/19 03:45 04/19/19 06:40 Most recent lab results ABG pH 7.330 pH Units (7.350-7.450) L 04/18/19 14:14 ABG pCO2 46.7 mm Hg 04/18/19 14:14 ABG pO2 98.6 mm Hg (80.0-90.0) H 04/18/19 14:14 ABG HCO3 24.0 mmol/L (20.0-26.0) 04/18/19 14:14 ABG O2 Saturation 97.0 % (95.0-99.0) 04/18/19 14:14 Calcium 10.0 mg/dL (8.4-10.2) 04/19/19 06:40 Magnesium 3.20 mg/dL (1.7-2.3) H 04/18/19 13:56 Assessment and Plan - Patient Problems (1) ESRD (end stage renal disease) Current Visit: Yes Status: Chronic Plan to address problem: Orders were written for HD today. Patient was seen earlier this am prior to her HD session. I was called by the dialysis staff and informed that she did not tolerate her HD session well despite low blood flow of 250 mm/min. She began having agonal breathing and became tachycardic. Rinsed back, and HD session stopped. After this her vital signs and respiratory status stabilized prior to transfer back to the room. Discussed with primary attending, and unsure how appropriate of a candidate she is for IHD. Will discuss with family. She is a DNR at this point/ (2) Acute CVA (cerebrovascular accident) Current Visit: Yes Status: Acute Plan to address problem: Based on CT scan, unclear when patient may have suffered this CVA. Further recommendations per primary attending (3) Acute encephalopathy Current Visit: Yes Status: Acute Plan to address problem: Likely in the setting of worsening uremic encephalopathy as patient has not dialyzed in over one week. Orders written for HD today. (4) Hypernatremia Current Visit: Yes Status: Acute Plan to address problem: Agree with free water replacement.
--- NOTE | 2019-04-19 10:36 | Progress Note ---
Assessment and Plan Assessment and plan: -- ESRD (end stage renal disease) Current Visit: Yes Status: Chronic Cont HD, nephrology following Patient was scheduled for hemodialysis however stopped by nephrology as patient had agonal breathing and became tachycardic and tachypneic During dialysis. Patient's vital signs and respiratory status stabilized and patient was transferred back to the room, I discussed with miller wood flour Dr. Palacios, I also discussed with patient's daughter at the bedside Patient not stable to continue HD --Severe Hypernatremia Current Visit: Yes Status: Acute D5W, monitor electrolytes ,management per nephrology --Sepsis Current Visit: Yes Status: Acute Empiric abx, follow cultures No source of infection identified -- Acute metabolic encephalopathy Current Visit: Yes Status: Acute Multifactorial , history of CVA Hyponatremia , sepsis, Uremia --Acute CVA (cerebrovascular accident) Current Visit: Yes Status: Acute CVA w/u, follow neurology evaluation and recommendations --Dysphagia Current Visit: Yes Status: Acute Speech evaln, GI consult. Possible PEG tube -- DVT prophylaxis-- Current Visit: Yes Status: Acute . Heparin --DO NOT RESUSCITATE status Patient is critically ill, poor prognosis, Recommended hospice. The patient's daughters refused stating They had bad experience with hospice and the father was sick. Discussed patient's condition , poor prognosis with daughter Ms Lubin. Had many questions answered all of them Discussed patient care with miller wood flour Dr. Palacios and GI Dr. elise Critical care time 45 minutes History Interval history: Patient seen and examined medical records reviewed Patient is critically ill and responsive Patient scheduled for hemodialysis, however unable to tolerate Hospitalist Physical - Constitutional Vitals: Temp Pulse Resp BP Pulse Ox 98.9 F 111 H 28 H 113/54 96 04/19/19 09:15 04/19/19 09:27 04/19/19 09:15 04/19/19 09:27 04/19/19 09:15 General appearance: Present: mild distress, cachectic, disheveled, other (unresponsive ,noncommunicative) - EENT Eyes: Present: PERRL, EOM intact - Neck Neck: Present: supple, normal ROM - Respiratory Respiratory effort: normal Respiratory: bilateral: diminished, negative: rales, rhonchi, wheezing - Cardiovascular Rhythm: regular Heart Sounds: Present: S1 & S2 - Extremities Extremities: no ischemia, No edema - Abdominal General gastrointestinal: soft, non-tender, non-distended, normal bowel sounds - Integumentary Integumentary: Present: clear, warm - Psychiatric Psychiatric: other (noncommunicative, altered) - Neurologic Neurologic: other (noncommunicative, altered mental status) Results - Labs CBC & Chem 7: 04/19/19 03:45 04/19/19 06:40 Labs: Laboratory Last Values WBC 28.7 K/mm3 (4.5-11.0) H 04/19/19 03:45 RBC 5.03 M/mm3 (3.65-5.03) 04/19/19 03:45 Hgb 14.0 gm/dl (10.1-14.3) 04/19/19 03:45 Hct 45.6 % (30.3-42.9) H 04/19/19 03:45 MCV 91 fl (79-97) 04/19/19 03:45 MCH 28 pg (28-32) 04/19/19 03:45 MCHC 31 % (30-34) 04/19/19 03:45 RDW 18.8 % (13.2-15.2) H 04/19/19 03:45 Plt Count 294 K/mm3 (140-440) 04/19/19 03:45 Add Manual Diff Complete 04/19/19 03:45 Total Counted 100 04/19/19 03:45 Seg Neutrophils % Logging Assistant 04/18/19 13:56 Seg Neuts % (Manual) 90.0 % (40.0-70.0) H 04/19/19 03:45 Band Neutrophils % 0 % 04/19/19 03:45 Lymphocytes % (Manual) 3.0 % (13.4-35.0) L 04/19/19 03:45 Reactive Lymphs % (Man) 0 % 04/19/19 03:45 Monocytes % (Manual) 7.0 % (0.0-7.3) 04/19/19 03:45 Eosinophils % (Manual) 0 % (0.0-4.3) 04/19/19 03:45 Basophils % (Manual) 0 % (0.0-1.8) 04/19/19 03:45 Metamyelocytes % 0 % 04/19/19 03:45 Myelocytes % 0 % 04/19/19 03:45 Promyelocytes % 0 % 04/19/19 03:45 Blast Cells % 0 % 04/19/19 03:45 Nucleated RBC % Not Reportable 04/19/19 03:45 Seg Neutrophils # Man 25.8 K/mm3 (1.8-7.7) H 04/19/19 03:45 Band Neutrophils # 0.0 K/mm3 04/19/19 03:45 Lymphocytes # (Manual) 0.9 K/mm3 (1.2-5.4) L 04/19/19 03:45 Abs React Lymphs (Man) 0.0 K/mm3 04/19/19 03:45 Monocytes # (Manual) 2.0 K/mm3 (0.0-0.8) H 04/19/19 03:45 Eosinophils # (Manual) 0.0 K/mm3 (0.0-0.4) 04/19/19 03:45 Basophils # (Manual) 0.0 K/mm3 (0.0-0.1) 04/19/19 03:45 Metamyelocytes # 0.0 K/mm3 04/19/19 03:45 Myelocytes # 0.0 K/mm3 04/19/19 03:45 Promyelocytes # 0.0 K/mm3 04/19/19 03:45 Blast Cells # 0.0 K/mm3 04/19/19 03:45 WBC Morphology Not Reportable 04/19/19 03:45 Hypersegmented Neuts Not Reportable 04/19/19 03:45 Hyposegmented Neuts Not Reportable 04/19/19 03:45 Hypogranular Neuts Not Reportable 04/19/19 03:45 Smudge Cells Not Reportable 04/19/19 03:45 Toxic Granulation Not Reportable 04/19/19 03:45 Toxic Vacuolation Not Reportable 04/19/19 03:45 Dohle Bodies Not Reportable 04/19/19 03:45 Pelger-Huet Anomaly Not Reportable 04/19/19 03:45 Troy Rods Not Reportable 04/19/19 03:45 Platelet Estimate Consistent w auto 04/19/19 03:45 Clumped Platelets Not Reportable 04/19/19 03:45 Plt Clumps, EDTA Not Reportable 04/19/19 03:45 Large Platelets Not Reportable 04/19/19 03:45 Giant Platelets Not Reportable 04/19/19 03:45 Platelet Satelliting Not Reportable 04/19/19 03:45 Plt Morphology Comment Not Reportable 04/19/19 03:45 RBC Morphology Not Reportable 04/19/19 03:45 Dimorphic RBCs Not Reportable 04/19/19 03:45 Polychromasia Not Reportable 04/19/19 03:45 Hypochromasia Not Reportable 04/19/19 03:45 Poikilocytosis Not Reportable 04/19/19 03:45 Anisocytosis Not Reportable 04/19/19 03:45 Microcytosis Not Reportable 04/19/19 03:45 Macrocytosis Not Reportable 04/19/19 03:45 Spherocytes Not Reportable 04/19/19 03:45 Pappenheimer Bodies Not Reportable 04/19/19 03:45 Sickle Cells Not Reportable 04/19/19 03:45 Target Cells Not Reportable 04/19/19 03:45 Tear Drop Cells Not Reportable 04/19/19 03:45 Ovalocytes Rare 04/19/19 03:45 Stomatocytes Few 04/18/19 13:56 Helmet Cells Not Reportable 04/19/19 03:45 [place] Bodies Not Reportable 04/19/19 03:45 Penrose Rings Not Reportable 04/19/19 03:45 Shahbaz Cells Not Reportable 04/19/19 03:45 Bite Cells Not Reportable 04/19/19 03:45 Crenated Cell Not Reportable 04/19/19 03:45 Elliptocytes Not Reportable 04/19/19 03:45 Acanthocytes (Spur) Not Reportable 04/19/19 03:45 Rouleaux Not Reportable 04/19/19 03:45 Hemoglobin C Crystals Not Reportable 04/19/19 03:45 Schistocytes Rare 04/19/19 03:45 Malaria parasites Not Reportable 04/19/19 03:45 Cornell Bodies Not Reportable 04/19/19 03:45 Hem Pathologist Commnt No 04/19/19 03:45 PT 15.4 Sec. (12.2-14.9) H 04/18/19 13:56 INR 1.20 (0.87-1.13) H 04/18/19 13:56 APTT 26.7 Sec. (24.2-36.6) 04/18/19 13:56 ABG pH 7.330 pH Units (7.350-7.450) L 04/18/19 14:14 ABG pCO2 46.7 mm Hg 04/18/19 14:14 ABG pO2 98.6 mm Hg (80.0-90.0) H 04/18/19 14:14 ABG HCO3 24.0 mmol/L (20.0-26.0) 04/18/19 14:14 ABG O2 Saturation 97.0 % (95.0-99.0) 04/18/19 14:14 ABG O2 Content 19.6 (0.0-44) 04/18/19 14:14 ABG Base Excess -2.2 mmol/L (-2.0-3.0) L 04/18/19 14:14 ABG Hemoglobin 14.6 gm/dl (12.0-16.0) 04/18/19 14:14 ABG Carboxyhemoglobin 1.2 % (0.0-5.0) 04/18/19 14:14 ABG Methemoglobin 0.6 % (0.0-1.5) 04/18/19 14:14 Oxyhemoglobin 95.3 % (95.0-99.0) 04/18/19 14:14 FiO2 100 % 04/18/19 14:14 Sodium 168 mmol/L (137-145) H* 04/19/19 06:40 Potassium 4.7 mmol/L (3.6-5.0) 04/19/19 06:40 Chloride 124.4 mmol/L (98-107) H 04/19/19 06:40 Carbon Dioxide 21 mmol/L (22-30) L 04/19/19 06:40 Anion Gap 27 mmol/L 04/19/19 06:40 BUN > 111 mg/dL (7-17) H 04/19/19 06:40 Creatinine 7.7 mg/dL (0.7-1.2) H 04/19/19 06:40 Estimated GFR 5 ml/min 04/19/19 06:40 BUN/Creatinine Ratio 14 % 04/19/19 06:40 Glucose 275 mg/dL (65-100) H 04/19/19 06:40 POC Glucose 214 (70-105) H 04/18/19 14:16 Hemoglobin A1c 5.8 % (4-6) 04/19/19 00:04 Lactic Acid 1.70 mmol/L (0.7-2.0) 04/18/19 16:24 Calcium 10.0 mg/dL (8.4-10.2) 04/19/19 06:40 Magnesium 3.20 mg/dL (1.7-2.3) H 04/18/19 13:56 Total Bilirubin 0.50 mg/dL (0.1-1.2) 04/19/19 06:40 AST 70 units/L (5-40) H 04/19/19 06:40 ALT 160 units/L (7-56) H 04/19/19 06:40 Alkaline Phosphatase 84 units/L (35-129) 04/19/19 06:40 Ammonia 78.0 umol/L (25-60) H 04/19/19 00:04 Total Creatine Kinase 94 units/L (30-135) 04/18/19 13:56 Troponin T 2.840 ng/mL (0.00-0.029) H* 04/18/19 13:56 Total Protein 6.0 g/dL (6.3-8.2) L 04/19/19 06:40 Albumin 3.2 g/dL (3.9-5) L 04/19/19 06:40 Albumin/Globulin Ratio 1.1 % 04/19/19 06:40 Triglycerides 289 mg/dL (2-149) H 04/18/19 13:56 Cholesterol 259 mg/dL (50-199) H 04/18/19 13:56 LDL Cholesterol Direct 166 mg/dL (50-130) H 04/18/19 13:56 HDL Cholesterol 29 mg/dL (40-59) L 04/18/19 13:56 Cholesterol/HDL Ratio 8.93 % 04/18/19 13:56 TSH 0.322 mlU/mL (0.270-4.200) 04/18/19 13:56 Free T4 1.33 ng/dL (0.76-1.46) 04/18/19 13:56 Urine Color Yellow (Yellow) 04/18/19 16:37 Urine Turbidity Cloudy (Clear) 04/18/19 16:37 Urine pH 5.0 (5.0-7.0) 04/18/19 16:37 Ur Specific [place] 1.014 (1.003-1.030) 04/18/19 16:37 Urine Protein 100 mg/dl mg/dL (Negative) 04/18/19 16:37 Urine Glucose (UA) 50 mg/dL (Negative) 04/18/19 16:37 Urine Ketones Neg mg/dL (Negative) 04/18/19 16:37 Urine Blood Neg (Negative) 04/18/19 16:37 Urine Nitrite Neg (Negative) 04/18/19 16:37 Urine Bilirubin Neg (Negative) 04/18/19 16:37 Urine Urobilinogen < 2.0 mg/dL (<2.0) 04/18/19 16:37 Ur Leukocyte Esterase Neg (Negative) 04/18/19 16:37 Urine WBC (Auto) 1.0 /HPF (0.0-6.0) 04/18/19 16:37 Urine RBC (Auto) 1.0 /HPF (0.0-6.0) 04/18/19 16:37 U Epithel Cells (Auto) 9.0 /HPF (0-13.0) 04/18/19 16:37 Urine Mucus Few /HPF 04/18/19 16:37 Salicylates < 0.3 mg/dL (2.8-20.0) L 04/18/19 13:56 Urine Opiates Screen Presumptive negative 04/18/19 16:37 Urine Methadone Screen Presumptive negative 04/18/19 16:37 Acetaminophen < 5.0 ug/mL (10.0-30.0) L 04/18/19 13:56 Ur Barbiturates Screen Presumptive negative 04/18/19 16:37 Ur Phencyclidine Scrn Presumptive negative 04/18/19 16:37 Ur Amphetamines Screen Presumptive negative 04/18/19 16:37 U Benzodiazepines Scrn Presumptive negative 04/18/19 16:37 Urine Cocaine Screen Presumptive negative 04/18/19 16:37 U Marijuana (THC) Screen Presumptive negative 04/18/19 16:37 Drugs of Abuse Note Disclamer 04/18/19 16:37 Plasma/Serum Alcohol < 0.01 % (0-0.07) 04/18/19 13:56 Blood Type A POSITIVE 04/18/19 13:56 Antibody Screen Negative 04/18/19 13:56 Active Medications - Current Medications Current Medications: Generic Name Dose Route Start Last Admin Trade Name Freq PRN Reason Stop Dose Admin Acetaminophen 650 mg 04/18/19 22:54 Tylenol PO Q4H PRN Pain MILD(1-3)/Fever >100.5/MCDANIELS Aspirin 325 mg 04/19/19 10:00 Aspirin PO QDAY [facility] Atorvastatin Calcium 40 mg 04/19/19 22:00 Lipitor PO QHS [facility] Dextrose 50 ml 04/18/19 14:00 D50w (25gm) Syringe IV PRN TRINA Famotidine 10 mg 04/19/19 10:00 Pepcid IV BID [facility] Hydromorphone HCl 0.5 mg 04/18/19 22:54 Dilaudid IV Q3H PRN Pain , Severe (7-10) Dextrose 1,000 mls @ 75 mls/hr 04/18/19 23:00 04/19/19 00:46 D5w IV 75 mls/hr DIRECT TRINA Administration Ceftriaxone Sodium 1 gm in 50 mls @ 100 mls/hr 04/19/19 10:00 Rocephin/Ns 1 Gm/50 Ml IV Q24HR [facility] Protocol Sodium Chloride 100 mls @ 999 mls/hr 04/19/19 09:00 Nacl 0.9% IV SHANNAN PRN Hypotension Metoclopramide HCl 2.5 mg 04/18/19 23:01 04/19/19 01:29 Reglan IV 2.5 mg Q6H PRN Administration Nausea And Vomiting Morphine Sulfate 2 mg 04/18/19 22:54 Morphine IV Q4H PRN Pain, Moderate (4-6) Sodium Chloride 10 ml 04/19/19 10:00 Sodium Chloride Flush Syringe 10 Ml IV BID TRINA Sodium Chloride 10 ml 04/18/19 22:54 Sodium Chloride Flush Syringe 10 Ml IV PRN PRN LINE FLUSH Sodium Chloride 10 ml 04/19/19 07:31 Sodium Chloride Flush Syringe 10 Ml IV PRN PRN LINE FLUSH
--- NOTE | 2019-04-19 10:37 | Gastroenterology Consultation ---
History of Present Illness - Reason for Consult Consult date: 04/19/19 Dysphagia Requesting physician: MIGEL RAE - History of Present Illness The history is per the chart and daughter. The patient has baseline dementia with near-total care by family, and now has a possible new CVA. The head CT shows severe acute on chronic changes. At her baseline she is wheelchair-bound and nearly non-verbal. She has been unresponsive except with noxious stimuli since admit, and during HD yesterday was agitated with agonal breathing. An EGD/PEG was explained at length to the daughter, including risks and benefits. She stated that her mother had told her last year that "she didn't want more procedures" and they have already made her AND/DNR. She and her 2 sisters have not made a decision about hospice, but are considering it. Past History Past Medical History: ESRD, hypertension, stroke Past Surgical History: No surgical history Social history: lives with family, AND/DNR-allow natural Family history: hypertension Medications and Allergies Allergies Allergy/AdvReac Type Severity Reaction Status Date / Time Insulins Allergy Hives Verified 04/18/19 14:15 iron Allergy Hives Verified 04/18/19 14:15 isosorbide Allergy Hives Verified 04/18/19 14:15 ondansetron [From Zofran] Allergy Hives Verified 04/18/19 14:15 Active Meds: Active Medications Acetaminophen (Tylenol) 650 mg PO Q4H PRN PRN Reason: Pain MILD(1-3)/Fever >100.5/MCDANIELS Aspirin (Aspirin) 325 mg PO QDAY TRINA Atorvastatin Calcium (Lipitor) 40 mg PO QHS TRINA Dextrose (D50w (25gm) Syringe) 50 ml IV PRN TRINA Famotidine (Pepcid) 10 mg IV BID TRINA Hydromorphone HCl (Dilaudid) 0.5 mg IV Q3H PRN PRN Reason: Pain , Severe (7-10) Dextrose (D5w) 1,000 mls @ 75 mls/hr IV DIRECT TRINA Last Admin: 04/19/19 00:46 Dose: 75 mls/hr Documented by: Ceftriaxone Sodium (Rocephin/Ns 1 Gm/50 Ml) 1 gm in 50 mls @ 100 mls/hr IV Q24HR TRINA; Protocol Sodium Chloride (Nacl 0.9%) 100 mls @ 999 mls/hr IV SHANNAN PRN PRN Reason: Hypotension Metoclopramide HCl (Reglan) 2.5 mg IV Q6H PRN PRN Reason: Nausea And Vomiting Last Admin: 04/19/19 01:29 Dose: 2.5 mg Documented by: Morphine Sulfate (Morphine) 2 mg IV Q4H PRN PRN Reason: Pain, Moderate (4-6) Sodium Chloride (Sodium Chloride Flush Syringe 10 Ml) 10 ml IV BID TRINA Sodium Chloride (Sodium Chloride Flush Syringe 10 Ml) 10 ml IV PRN PRN PRN Reason: LINE FLUSH Sodium Chloride (Sodium Chloride Flush Syringe 10 Ml) 10 ml IV PRN PRN PRN Reason: LINE FLUSH Review of Systems - Review of Systems ROS unobtainable: due to mental status Exam - Constitutional Vital Signs: Temp Pulse Resp BP Pulse Ox 98.9 F 111 H 28 H 113/54 96 04/19/19 09:15 04/19/19 09:15 04/19/19 09:15 04/19/19 09:15 04/19/19 09:15 General appearance: no acute distress, other (Nonresponsive to verbal or tactile stimuli except sternal rub) - EENT Eyes: PERRL ENT: clear oral mucosa, no thrush - Neck Neck: supple, normal ROM - Respiratory Respiratory effort: normal Respiratory: bilateral: diminished - Cardiovascular Rhythm: regular Heart Sounds: Present: S1 & S2 Extremities: no ischemia, No edema - Gastrointestinal General gastrointestinal: Present: soft, non-tender, non-distended - Integumentary Integumentary: Present: clear, warm, dry - Neurologic Neurological: other (Response to noxious stimuli only; no posturing) - Labs CBC & Chem 7: 04/19/19 03:45 04/19/19 06:40 Lab Results: Laboratory Results - last 24 hr 04/18/19 04/18/19 04/18/19 13:56 13:56 13:56 WBC RBC Hgb Hct MCV MCH MCHC RDW Plt Count Add Manual Diff Total Counted Seg Neutrophils % Seg Neuts % (Manual) Band Neutrophils % Lymphocytes % (Manual) Reactive Lymphs % (Man) Monocytes % (Manual) Eosinophils % (Manual) Basophils % (Manual) Metamyelocytes % Myelocytes % Promyelocytes % Blast Cells % Nucleated RBC % Seg Neutrophils # Man Band Neutrophils # Lymphocytes # (Manual) Abs React Lymphs (Man) Monocytes # (Manual) Eosinophils # (Manual) Basophils # (Manual) Metamyelocytes # Myelocytes # Promyelocytes # Blast Cells # WBC Morphology Hypersegmented Neuts Hyposegmented Neuts Hypogranular Neuts Smudge Cells Toxic Granulation Toxic Vacuolation Dohle Bodies Pelger-Huet Anomaly Troy Rods Platelet Estimate Clumped Platelets Plt Clumps, EDTA Large Platelets Giant Platelets Platelet Satelliting Plt Morphology Comment RBC Morphology Dimorphic RBCs Polychromasia Hypochromasia Poikilocytosis Anisocytosis Microcytosis Macrocytosis Spherocytes Pappenheimer Bodies Sickle Cells Target Cells Tear Drop Cells Ovalocytes Stomatocytes Helmet Cells Das-[place] Bodies [place] Rings Shahbaz Cells Bite Cells Crenated Cell Elliptocytes Acanthocytes (Spur) Rouleaux Hemoglobin C Crystals Schistocytes Malaria parasites Cornell Bodies Hem Pathologist Commnt PT INR APTT ABG pH ABG pCO2 ABG pO2 ABG HCO3 ABG O2 Saturation ABG O2 Content ABG Base Excess ABG Hemoglobin ABG Carboxyhemoglobin ABG Methemoglobin Oxyhemoglobin FiO2 Sodium Potassium Chloride Carbon Dioxide Anion Gap BUN Creatinine Estimated GFR BUN/Creatinine Ratio Glucose POC Glucose Hemoglobin A1c Lactic Acid Calcium Magnesium Total Bilirubin AST ALT Alkaline Phosphatase Ammonia 57.0 Total Creatine Kinase Troponin T Total Protein Albumin Albumin/Globulin Ratio Triglycerides Cholesterol LDL Cholesterol Direct HDL Cholesterol Cholesterol/HDL Ratio TSH 0.322 Free T4 1.33 Urine Color Urine Turbidity Urine pH Ur Specific [place] Urine Protein Urine Glucose (UA) Urine Ketones Urine Blood Urine Nitrite Urine Bilirubin Urine Urobilinogen Ur Leukocyte Esterase Urine WBC (Auto) Urine RBC (Auto) U Epithel Cells (Auto) Urine Mucus Salicylates Urine Opiates Screen Urine Methadone Screen Acetaminophen Ur Barbiturates Screen Ur Phencyclidine Scrn Ur Amphetamines Screen U Benzodiazepines Scrn Urine Cocaine Screen U Marijuana (THC) Screen Drugs of Abuse Note Plasma/Serum Alcohol Blood Type Antibody Screen 04/18/19 04/18/19 04/18/19 13:56 13:56 13:56 WBC RBC Hgb Hct MCV MCH MCHC RDW Plt Count Add Manual Diff Total Counted Seg Neutrophils % Seg Neuts % (Manual) Band Neutrophils % Lymphocytes % (Manual) Reactive Lymphs % (Man) Monocytes % (Manual) Eosinophils % (Manual) Basophils % (Manual) Metamyelocytes % Myelocytes % Promyelocytes % Blast Cells % Nucleated RBC % Seg Neutrophils # Man Band Neutrophils # Lymphocytes # (Manual) Abs React Lymphs (Man) Monocytes # (Manual) Eosinophils # (Manual) Basophils # (Manual) Metamyelocytes # Myelocytes # Promyelocytes # Blast Cells # WBC Morphology Hypersegmented Neuts Hyposegmented Neuts Hypogranular Neuts Smudge Cells Toxic Granulation Toxic Vacuolation Dohle Bodies Pelger-Huet Anomaly [place] Rods Platelet Estimate Clumped Platelets Plt Clumps, EDTA Large Platelets Giant Platelets Platelet Satelliting Plt Morphology Comment RBC Morphology Dimorphic RBCs Polychromasia Hypochromasia Poikilocytosis Anisocytosis Microcytosis Macrocytosis Spherocytes Pappenheimer Bodies Sickle Cells Target Cells Tear Drop Cells Ovalocytes Stomatocytes Helmet Cells Das-[place] Bodies [place] Rings Shahbaz Cells Bite Cells Crenated Cell Elliptocytes Acanthocytes (Spur) Rouleaux Hemoglobin C Crystals Schistocytes Malaria parasites [place] Bodies Hem Pathologist Commnt PT INR APTT ABG pH ABG pCO2 ABG pO2 ABG HCO3 ABG O2 Saturation ABG O2 Content ABG Base Excess ABG Hemoglobin ABG Carboxyhemoglobin ABG Methemoglobin Oxyhemoglobin FiO2 Sodium Potassium Chloride Carbon Dioxide Anion Gap BUN Creatinine Estimated GFR BUN/Creatinine Ratio Glucose POC Glucose Hemoglobin A1c Lactic Acid Calcium Magnesium Total Bilirubin AST ALT Alkaline Phosphatase Ammonia Total Creatine Kinase Troponin T Total Protein Albumin Albumin/Globulin Ratio Triglycerides Cholesterol LDL Cholesterol Direct HDL Cholesterol Cholesterol/HDL Ratio TSH Free T4 Urine Color Urine Turbidity Urine pH Ur Specific [place] Urine Protein Urine Glucose (UA) Urine Ketones Urine Blood Urine Nitrite Urine Bilirubin Urine Urobilinogen Ur Leukocyte Esterase Urine WBC (Auto) Urine RBC (Auto) U Epithel Cells (Auto) Urine Mucus Salicylates < 0.3 L Urine Opiates Screen Urine Methadone Screen Acetaminophen < 5.0 L Ur Barbiturates Screen Ur Phencyclidine Scrn Ur Amphetamines Screen U Benzodiazepines Scrn Urine Cocaine Screen U Marijuana (THC) Screen Drugs of Abuse Note Plasma/Serum Alcohol < 0.01 Blood Type Antibody Screen 04/18/19 04/18/19 04/18/19 13:56 13:56 13:56 WBC 18.3 H RBC 5.19 H Hgb 14.4 H Hct 45.4 H MCV 88 MCH 28 MCHC 32 RDW 18.2 H Plt Count 406 Add Manual Diff Complete Total Counted 100 Seg Neutrophils % Med Spec Seg Neuts % (Manual) 93.0 H Band Neutrophils % 0 Lymphocytes % (Manual) 3.0 L Reactive Lymphs % (Man) 0 Monocytes % (Manual) 4.0 Eosinophils % (Manual) 0 Basophils % (Manual) 0 Metamyelocytes % 0 Myelocytes % 0 Promyelocytes % 0 Blast Cells % 0 Nucleated RBC % Not Reportable Seg Neutrophils # Man 17.0 H Band Neutrophils # 0.0 Lymphocytes # (Manual) 0.5 L Abs React Lymphs (Man) 0.0 Monocytes # (Manual) 0.7 Eosinophils # (Manual) 0.0 Basophils # (Manual) 0.0 Metamyelocytes # 0.0 Myelocytes # 0.0 Promyelocytes # 0.0 Blast Cells # 0.0 WBC Morphology Not Reportable Hypersegmented Neuts Not Reportable Hyposegmented Neuts Not Reportable Hypogranular Neuts Not Reportable Smudge Cells Not Reportable Toxic Granulation Not Reportable Toxic Vacuolation Not Reportable Dohle Bodies Not Reportable Pelger-Huet Anomaly Not Reportable [place] Rods Not Reportable Platelet Estimate Consistent w auto Clumped Platelets Not Reportable Plt Clumps, EDTA Not Reportable Large Platelets Not Reportable Giant Platelets Not Reportable Platelet Satelliting Not Reportable Plt Morphology Comment Not Reportable RBC Morphology Not Reportable Dimorphic RBCs Not Reportable Polychromasia Not Reportable Hypochromasia Not Reportable Poikilocytosis Not Reportable Anisocytosis Not Reportable Microcytosis Not Reportable Macrocytosis Not Reportable Spherocytes Not Reportable Pappenheimer Bodies Not Reportable Sickle Cells Not Reportable Target Cells Not Reportable Tear Drop Cells Not Reportable Ovalocytes Not Reportable Stomatocytes Few Helmet Cells Not Reportable Das-[place] Bodies Not Reportable [place] Rings Not Reportable [place] Cells Not Reportable Bite Cells Not Reportable Crenated Cell Not Reportable Elliptocytes Few Acanthocytes (Spur) Not Reportable Rouleaux Not Reportable Hemoglobin C Crystals Not Reportable Schistocytes Not Reportable Malaria parasites Not Reportable [place] Bodies Not Reportable Hem Pathologist Commnt No PT 15.4 H INR 1.20 H APTT 26.7 ABG pH ABG pCO2 ABG pO2 ABG HCO3 ABG O2 Saturation ABG O2 Content ABG Base Excess ABG Hemoglobin ABG Carboxyhemoglobin ABG Methemoglobin Oxyhemoglobin FiO2 Sodium 163 H* Potassium 4.5 Chloride 119.7 H Carbon Dioxide 20 L Anion Gap 28 BUN 117 H Creatinine 7.0 H Estimated GFR 6 BUN/Creatinine Ratio 17 Glucose 235 H POC Glucose Hemoglobin A1c Lactic Acid Calcium 10.9 H Magnesium 3.20 H Total Bilirubin 0.70 AST 147 H ALT 169 H Alkaline Phosphatase 98 Ammonia Total Creatine Kinase 94 Troponin T 2.840 H* Total Protein 7.4 Albumin 3.6 L Albumin/Globulin Ratio 0.9 Triglycerides 289 H Cholesterol 259 H LDL Cholesterol Direct 166 H HDL Cholesterol 29 L Cholesterol/HDL Ratio 8.93 TSH Free T4 Urine Color Urine Turbidity Urine pH Ur Specific [place] Urine Protein Urine Glucose (UA) Urine Ketones Urine Blood Urine Nitrite Urine Bilirubin Urine Urobilinogen Ur Leukocyte Esterase Urine WBC (Auto) Urine RBC (Auto) U Epithel Cells (Auto) Urine Mucus Salicylates Urine Opiates Screen Urine Methadone Screen Acetaminophen Ur Barbiturates Screen Ur Phencyclidine Scrn Ur Amphetamines Screen U Benzodiazepines Scrn Urine Cocaine Screen U Marijuana (THC) Screen Drugs of Abuse Note Plasma/Serum Alcohol Blood Type Antibody Screen 04/18/19 04/18/19 04/18/19 13:56 13:56 14:14 WBC RBC Hgb Hct MCV MCH MCHC RDW Plt Count Add Manual Diff Total Counted Seg Neutrophils % Seg Neuts % (Manual) Band Neutrophils % Lymphocytes % (Manual) Reactive Lymphs % (Man) Monocytes % (Manual) Eosinophils % (Manual) Basophils % (Manual) Metamyelocytes % Myelocytes % Promyelocytes % Blast Cells % Nucleated RBC % Seg Neutrophils # Man Band Neutrophils # Lymphocytes # (Manual) Abs React Lymphs (Man) Monocytes # (Manual) Eosinophils # (Manual) Basophils # (Manual) Metamyelocytes # Myelocytes # Promyelocytes # Blast Cells # WBC Morphology Hypersegmented Neuts Hyposegmented Neuts Hypogranular Neuts Smudge Cells Toxic Granulation Toxic Vacuolation Dohle Bodies Pelger-Huet Anomaly [place] Rods Platelet Estimate Clumped Platelets Plt Clumps, EDTA Large Platelets Giant Platelets Platelet Satelliting Plt Morphology Comment RBC Morphology Dimorphic RBCs Polychromasia Hypochromasia Poikilocytosis Anisocytosis Microcytosis Macrocytosis Spherocytes Pappenheimer Bodies Sickle Cells Target Cells Tear Drop Cells Ovalocytes Stomatocytes Helmet Cells Das-[place] Bodies [place] Rings Shahbaz Cells Bite Cells Crenated Cell Elliptocytes Acanthocytes (Spur) Rouleaux Hemoglobin C Crystals Schistocytes Malaria parasites [place] Bodies Hem Pathologist Commnt PT INR APTT ABG pH 7.330 L ABG pCO2 46.7 ABG pO2 98.6 H ABG HCO3 24.0 ABG O2 Saturation 97.0 ABG O2 Content 19.6 ABG Base Excess -2.2 L ABG Hemoglobin 14.6 ABG Carboxyhemoglobin 1.2 ABG Methemoglobin 0.6 Oxyhemoglobin 95.3 FiO2 100 Sodium Potassium Chloride Carbon Dioxide Anion Gap BUN Creatinine Estimated GFR BUN/Creatinine Ratio Glucose POC Glucose Hemoglobin A1c Lactic Acid 2.60 H* Calcium Magnesium Total Bilirubin AST ALT Alkaline Phosphatase Ammonia Total Creatine Kinase Troponin T Total Protein Albumin Albumin/Globulin Ratio Triglycerides Cholesterol LDL Cholesterol Direct HDL Cholesterol Cholesterol/HDL Ratio TSH Free T4 Urine Color Urine Turbidity Urine pH Ur Specific [place] Urine Protein Urine Glucose (UA) Urine Ketones Urine Blood Urine Nitrite Urine Bilirubin Urine Urobilinogen Ur Leukocyte Esterase Urine WBC (Auto) Urine RBC (Auto) U Epithel Cells (Auto) Urine Mucus Salicylates Urine Opiates Screen Urine Methadone Screen Acetaminophen Ur Barbiturates Screen Ur Phencyclidine Scrn Ur Amphetamines Screen U Benzodiazepines Scrn Urine Cocaine Screen U Marijuana (THC) Screen Drugs of Abuse Note Plasma/Serum Alcohol Blood Type A POSITIVE Antibody Screen Negative 04/18/19 04/18/19 04/18/19 14:16 16:24 16:37 WBC RBC Hgb Hct MCV MCH MCHC RDW Plt Count Add Manual Diff Total Counted Seg Neutrophils % Seg Neuts % (Manual) Band Neutrophils % Lymphocytes % (Manual) Reactive Lymphs % (Man) Monocytes % (Manual) Eosinophils % (Manual) Basophils % (Manual) Metamyelocytes % Myelocytes % Promyelocytes % Blast Cells % Nucleated RBC % Seg Neutrophils # Man Band Neutrophils # Lymphocytes # (Manual) Abs React Lymphs (Man) Monocytes # (Manual) Eosinophils # (Manual) Basophils # (Manual) Metamyelocytes # Myelocytes # Promyelocytes # Blast Cells # WBC Morphology Hypersegmented Neuts Hyposegmented Neuts Hypogranular Neuts Smudge Cells Toxic Granulation Toxic Vacuolation Dohle Bodies Pelger-Huet Anomaly Troy Rods Platelet Estimate Clumped Platelets Plt Clumps, EDTA Large Platelets Giant Platelets Platelet Satelliting Plt Morphology Comment RBC Morphology Dimorphic RBCs Polychromasia Hypochromasia Poikilocytosis Anisocytosis Microcytosis Macrocytosis Spherocytes Pappenheimer Bodies Sickle Cells Target Cells Tear Drop Cells Ovalocytes Stomatocytes Helmet Cells Das-[place] Bodies [place] Rings [place] Cells Bite Cells Crenated Cell Elliptocytes Acanthocytes (Spur) Rouleaux Hemoglobin C Crystals Schistocytes Malaria parasites [place] Bodies Hem Pathologist Commnt PT INR APTT ABG pH ABG pCO2 ABG pO2 ABG HCO3 ABG O2 Saturation ABG O2 Content ABG Base Excess ABG Hemoglobin ABG Carboxyhemoglobin ABG Methemoglobin Oxyhemoglobin FiO2 Sodium Potassium Chloride Carbon Dioxide Anion Gap BUN Creatinine Estimated GFR BUN/Creatinine Ratio Glucose POC Glucose 214 H Hemoglobin A1c Lactic Acid 1.70 Calcium Magnesium Total Bilirubin AST ALT Alkaline Phosphatase Ammonia Total Creatine Kinase Troponin T Total Protein Albumin Albumin/Globulin Ratio Triglycerides Cholesterol LDL Cholesterol Direct HDL Cholesterol Cholesterol/HDL Ratio TSH Free T4 Urine Color Yellow Urine Turbidity Cloudy Urine pH 5.0 Ur Specific [place] 1.014 Urine Protein 100 mg/dl Urine Glucose (UA) 50 Urine Ketones Neg Urine Blood Neg Urine Nitrite Neg Urine Bilirubin Neg Urine Urobilinogen < 2.0 Ur Leukocyte Esterase Neg Urine WBC (Auto) 1.0 Urine RBC (Auto) 1.0 U Epithel Cells (Auto) 9.0 Urine Mucus Few Salicylates Urine Opiates Screen Urine Methadone Screen Acetaminophen Ur Barbiturates Screen Ur Phencyclidine Scrn Ur Amphetamines Screen U Benzodiazepines Scrn Urine Cocaine Screen U Marijuana (THC) Screen Drugs of Abuse Note Plasma/Serum Alcohol Blood Type Antibody Screen 04/18/19 04/19/19 04/19/19 16:37 00:04 00:04 WBC RBC Hgb Hct MCV MCH MCHC RDW Plt Count Add Manual Diff Total Counted Seg Neutrophils % Seg Neuts % (Manual) Band Neutrophils % Lymphocytes % (Manual) Reactive Lymphs % (Man) Monocytes % (Manual) Eosinophils % (Manual) Basophils % (Manual) Metamyelocytes % Myelocytes % Promyelocytes % Blast Cells % Nucleated RBC % Seg Neutrophils # Man Band Neutrophils # Lymphocytes # (Manual) Abs React Lymphs (Man) Monocytes # (Manual) Eosinophils # (Manual) Basophils # (Manual) Metamyelocytes # Myelocytes # Promyelocytes # Blast Cells # WBC Morphology Hypersegmented Neuts Hyposegmented Neuts Hypogranular Neuts Smudge Cells Toxic Granulation Toxic Vacuolation Dohle Bodies Pelger-Huet Anomaly Troy Rods Platelet Estimate Clumped Platelets Plt Clumps, EDTA Large Platelets Giant Platelets Platelet Satelliting Plt Morphology Comment RBC Morphology Dimorphic RBCs Polychromasia Hypochromasia Poikilocytosis Anisocytosis Microcytosis Macrocytosis Spherocytes Pappenheimer Bodies Sickle Cells Target Cells Tear Drop Cells Ovalocytes Stomatocytes Helmet Cells Das-[place] Bodies [place] Rings Shahbaz Cells Bite Cells Crenated Cell Elliptocytes Acanthocytes (Spur) Rouleaux Hemoglobin C Crystals Schistocytes Malaria parasites [place] Bodies Hem Pathologist Commnt PT INR APTT ABG pH ABG pCO2 ABG pO2 ABG HCO3 ABG O2 Saturation ABG O2 Content ABG Base Excess ABG Hemoglobin ABG Carboxyhemoglobin ABG Methemoglobin Oxyhemoglobin FiO2 Sodium Potassium Chloride Carbon Dioxide Anion Gap BUN Creatinine Estimated GFR BUN/Creatinine Ratio Glucose POC Glucose Hemoglobin A1c 5.8 Lactic Acid Calcium Magnesium Total Bilirubin AST ALT Alkaline Phosphatase Ammonia 78.0 H Total Creatine Kinase Troponin T Total Protein Albumin Albumin/Globulin Ratio Triglycerides Cholesterol LDL Cholesterol Direct HDL Cholesterol Cholesterol/HDL Ratio TSH Free T4 Urine Color Urine Turbidity Urine pH Ur Specific [place] Urine Protein Urine Glucose (UA) Urine Ketones Urine Blood Urine Nitrite Urine Bilirubin Urine Urobilinogen Ur Leukocyte Esterase Urine WBC (Auto) Urine RBC (Auto) U Epithel Cells (Auto) Urine Mucus Salicylates Urine Opiates Screen Presumptive negative Urine Methadone Screen Presumptive negative Acetaminophen Ur Barbiturates Screen Presumptive negative Ur Phencyclidine Scrn Presumptive negative Ur Amphetamines Screen Presumptive negative U Benzodiazepines Scrn Presumptive negative Urine Cocaine Screen Presumptive negative U Marijuana (THC) Screen Presumptive negative Drugs of Abuse Note Disclamer Plasma/Serum Alcohol Blood Type Antibody Screen 04/19/19 04/19/19 03:45 06:40 WBC 28.7 H RBC 5.03 Hgb 14.0 Hct 45.6 H MCV 91 MCH 28 MCHC 31 RDW 18.8 H Plt Count 294 Add Manual Diff Complete Total Counted 100 Seg Neutrophils % Seg Neuts % (Manual) 90.0 H Band Neutrophils % 0 Lymphocytes % (Manual) 3.0 L Reactive Lymphs % (Man) 0 Monocytes % (Manual) 7.0 Eosinophils % (Manual) 0 Basophils % (Manual) 0 Metamyelocytes % 0 Myelocytes % 0 Promyelocytes % 0 Blast Cells % 0 Nucleated RBC % Not Reportable Seg Neutrophils # Man 25.8 H Band Neutrophils # 0.0 Lymphocytes # (Manual) 0.9 L Abs React Lymphs (Man) 0.0 Monocytes # (Manual) 2.0 H Eosinophils # (Manual) 0.0 Basophils # (Manual) 0.0 Metamyelocytes # 0.0 Myelocytes # 0.0 Promyelocytes # 0.0 Blast Cells # 0.0 WBC Morphology Not Reportable Hypersegmented Neuts Not Reportable Hyposegmented Neuts Not Reportable Hypogranular Neuts Not Reportable Smudge Cells Not Reportable Toxic Granulation Not Reportable Toxic Vacuolation Not Reportable Dohle Bodies Not Reportable Pelger-Huet Anomaly Not Reportable [place] Rods Not Reportable Platelet Estimate Consistent w auto Clumped Platelets Not Reportable Plt Clumps, EDTA Not Reportable Large Platelets Not Reportable Giant Platelets Not Reportable Platelet Satelliting Not Reportable Plt Morphology Comment Not Reportable RBC Morphology Not Reportable Dimorphic RBCs Not Reportable Polychromasia Not Reportable Hypochromasia Not Reportable Poikilocytosis Not Reportable Anisocytosis Not Reportable Microcytosis Not Reportable Macrocytosis Not Reportable Spherocytes Not Reportable Pappenheimer Bodies Not Reportable Sickle Cells Not Reportable Target Cells Not Reportable Tear Drop Cells Not Reportable Ovalocytes Rare Stomatocytes Helmet Cells Not Reportable Das-[place] Bodies Not Reportable [place] Rings Not Reportable [place] Cells Not Reportable Bite Cells Not Reportable Crenated Cell Not Reportable Elliptocytes Not Reportable Acanthocytes (Spur) Not Reportable Rouleaux Not Reportable Hemoglobin C Crystals Not Reportable Schistocytes Rare Malaria parasites Not Reportable [place] Bodies Not Reportable Hem Pathologist Commnt No PT INR APTT ABG pH ABG pCO2 ABG pO2 ABG HCO3 ABG O2 Saturation ABG O2 Content ABG Base Excess ABG Hemoglobin ABG Carboxyhemoglobin ABG Methemoglobin Oxyhemoglobin FiO2 Sodium 168 H* Potassium 4.7 Chloride 124.4 H Carbon Dioxide 21 L Anion Gap 27 BUN > 111 H Creatinine 7.7 H Estimated GFR 5 BUN/Creatinine Ratio 14 Glucose 275 H POC Glucose Hemoglobin A1c Lactic Acid Calcium 10.0 Magnesium Total Bilirubin 0.50 AST 70 H ALT 160 H Alkaline Phosphatase 84 Ammonia Total Creatine Kinase Troponin T Total Protein 6.0 L Albumin 3.2 L Albumin/Globulin Ratio 1.1 Triglycerides Cholesterol LDL Cholesterol Direct HDL Cholesterol Cholesterol/HDL Ratio TSH Free T4 Urine Color Urine Turbidity Urine pH Ur Specific [place] Urine Protein Urine Glucose (UA) Urine Ketones Urine Blood Urine Nitrite Urine Bilirubin Urine Urobilinogen Ur Leukocyte Esterase Urine WBC (Auto) Urine RBC (Auto) U Epithel Cells (Auto) Urine Mucus Salicylates Urine Opiates Screen Urine Methadone Screen Acetaminophen Ur Barbiturates Screen Ur Phencyclidine Scrn Ur Amphetamines Screen U Benzodiazepines Scrn Urine Cocaine Screen U Marijuana (THC) Screen Drugs of Abuse Note Plasma/Serum Alcohol Blood Type Antibody Screen Assessment and Plan - Patient Problems (1) Neurogenic dysphagia Current Visit: Yes Status: Acute Plan to address problem: - Long d/w family re: risks/benefits of EGD/PEG. - Patient had baseline significant neurologic deficits, and was dependent on others for all IADLs/ADLs. - The family is strongly considering hospice, and I would agree with that decision given her profound deficits. - Will sign off; please call if family changes mind and wishes to proceed with EGD/PEG.
[2019-04-19] MEDS: cefTRIAXone/NS 1 GM/50 ML 1 GM/50 ML BAG IV SCH (11:00)
[2019-04-19] MEDS: FAMOTIDINE 20 MG/2 ML INJ IV SCH ×2 (11:00→23:50)
[2019-04-19] MEDS: ASPIRIN 325 MG TAB PO SCH (11:04)
[2019-04-19 13:31] LABS: Hepatitis B Surface Antigen Non-Reactive (Negative); Hepatitis C Virus Antibody Non-Reactive (NonReactive)
--- NOTE | 2019-04-19 16:06 | XRay Report ---
XR abdomen 1V ap INDICATION / CLINICAL INFORMATION: ng tube placement verification. COMPARISON: 04/18/2019 CT. FINDINGS: A new esophagogastric tube with intrinsic stylet noted looped in the mid to distal stomach with its tip pointing back at the GE junction. It may be retracted approximately 12 cm and readvanc ed some in an effort to position its tip distally, if so appropriate. Extensive vascular calcificati ons within the abdomen again noted. Nonobstructive included bowel gas pattern. Small to moderate ri ght lower lung opacity representing consolidation/effusion, worse since 2 days ago. Left lung base r emains clear. Grossly normal cardiomediastinal silhouette. Demineralized bones with multilevel spin al spondylosis. EKG leads. IMPRESSION / CONCLUSION: 1. New esophagogastric tube since yesterday with its tip pointing back towards the GE junction and m ay be repositioned, as described. 2. Increased right lower lung opacification. 3. Various other findings, including extensive abdominal vascular calcifications, as above. Thank you for the opportunity to participate in this patient's care. Signer Name: Judy Rodriguez Signed: 04/19/2019 4:02 PM Workstation Name: [id number]
--- NOTE | 2019-04-19 16:22 | XRay Report ---
ABDOMEN 1 VIEW INDICATION / CLINICAL INFORMATION: ng tube placement verification. COMPARISON: KUB from earlier today. FINDINGS: TUBES / LINES: The previously seen esophagogastric tube has been retracted. The tip of the tube remai ns directed toward the GE junction. BOWEL GAS PATTERN: No significant abnormality. FREE AIR / EXTRALUMINAL GAS: None seen. ADDITIONAL FINDINGS: Severe atherosclerosis is again seen. Right basilar pleural-parenchymal opacitie s are unchanged. IMPRESSION: 1. Interval adjustment of the esophagogastric tube as above with the tip still directed toward the GE junction. Rotation of the tube to the right and advancement by 4 cm may improve position. 2. Otherwise stable appearance of the abdomen. Signer Name: Ruben Scruggs MD Signed: 04/19/2019 4:18 PM Workstation Name: [id number]
--- NOTE | 2019-04-19 17:14 | Consultation ---
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 Patient at baseline reportedly is only able to say "yes" and "no", and only does so intermittently. Patient's daughter who is at bedside, states that she has noted a progressive decline in patient's health over the past one week. She noted increased generalized weakness, and due to this, patient was unable to get dialysis for the past week. Patient was also not eating properly, and was noted to become more lethargic. Patient was then brought to [facility] for further evaluation. Patient was found to have sepsis, was febrile with fever of 101.7, had hypernatremia of 168, and uremia. Discussion was reportedly had regarding intubation, however family made patient DNR/DNI. 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, hypertension, diabetes) Past Surgical History: No surgical history Social history: lives with family, AND/DNR-allow natural Family history: hypertension Medications and Allergies Allergies Allergy/AdvReac Type Severity Reaction Status Date / Time Insulins Allergy Hives Verified 04/18/19 14:15 iron Allergy Hives Verified 04/18/19 14:15 isosorbide Allergy Hives Verified 04/18/19 14:15 ondansetron [From Zofran] Allergy Hives Verified 04/18/19 14:15 Active Meds: Active Medications Acetaminophen (Tylenol) 650 mg PO Q4H PRN PRN Reason: Pain MILD(1-3)/Fever >100.5/MCDANIELS Aspirin (Aspirin) 325 mg PO QDAY [facility] Last Admin: 04/19/19 11:04 Dose: Not Given Documented by: Atorvastatin Calcium (Lipitor) 40 mg PO QHS [facility] Dextrose (D50w (25gm) Syringe) 50 ml IV PRN [facility] Famotidine (Pepcid) 10 mg IV BID [facility] Last Admin: 04/19/19 11:00 Dose: 10 mg Documented by: Hydromorphone HCl (Dilaudid) 0.5 mg IV Q3H PRN PRN Reason: Pain , Severe (7-10) Dextrose (D5w) 1,000 mls @ 75 mls/hr IV DIRECT [facility] Last Admin: 04/19/19 00:46 Dose: 75 mls/hr Documented by: Ceftriaxone Sodium (Rocephin/Ns 1 Gm/50 Ml) 1 gm in 50 mls @ 100 mls/hr IV Q24HR [facility]; Protocol Last Admin: 04/19/19 11:00 Dose: 100 mls/hr Documented by: Sodium Chloride (Nacl 0.9%) 100 mls @ 999 mls/hr IV SHANNAN PRN PRN Reason: Hypotension Metoclopramide HCl (Reglan) 2.5 mg IV Q6H PRN PRN Reason: Nausea And Vomiting Last Admin: 04/19/19 01:29 Dose: 2.5 mg Documented by: Morphine Sulfate (Morphine) 2 mg IV Q4H PRN PRN Reason: Pain, Moderate (4-6) Sodium Chloride (Sodium Chloride Flush Syringe 10 Ml) 10 ml IV BID [facility] Last Admin: 04/19/19 11:03 Dose: 10 ml Documented by: Sodium Chloride (Sodium Chloride Flush Syringe 10 Ml) 10 ml IV PRN PRN PRN Reason: LINE FLUSH Sodium Chloride (Sodium Chloride Flush Syringe 10 Ml) 10 ml IV PRN PRN PRN Reason: LINE FLUSH Review of Systems ROS unobtainable: due to mental status Physical Examination - Vital Signs Vital Signs: Vital Signs Pulse Resp 133 H 19 04/18/19 13:40 04/18/19 13:40 - Physical Exam Narrative exam: Patient is obtunded, does not awake with deep pain stimulus or tactile stimulus. Pupils bilaterally sluggishly reactive to light, corneal reflexes intact. Cough reflex is intact. No withdrawal to pain stimulus in any extremity. 2+ reflexes on right upper and lower extremity, 3+ on left upper and lower extremities. - Constitutional General appearance: acutely ill - EENT EENT: Present: ATNC, mucous membranes moist - Respiratory Respiratory: Present: decreased breath sounds - Cardiovascular Cardiovascular: Present: regular rate, normal S1, normal S2 Extremities: Present: no clubbing, cyanosis - Gastrointestinal Gastrointestinal: Present: normoactive bowel sounds, soft, non-tender Results - Laboratory Findings CBC and BMP: 04/19/19 03:45 04/19/19 06:40 Abnormal Lab Findings: Abnormal Labs 04/18/19 04/18/19 04/18/19 13:56 13:56 13:56 WBC 18.3 H RBC 5.19 H Hgb 14.4 H Hct 45.4 H RDW 18.2 H Seg Neuts % (Manual) 93.0 H Lymphocytes % (Manual) 3.0 L Seg Neutrophils # Man 17.0 H Lymphocytes # (Manual) 0.5 L Monocytes # (Manual) PT INR ABG pH ABG pO2 ABG Base Excess Sodium Chloride Carbon Dioxide BUN Creatinine Glucose POC Glucose Lactic Acid Calcium Magnesium AST ALT Ammonia Troponin T Total Protein Albumin Triglycerides Cholesterol LDL Cholesterol Direct HDL Cholesterol Salicylates < 0.3 L Acetaminophen < 5.0 L 04/18/19 04/18/19 04/18/19 13:56 13:56 13:56 WBC RBC Hgb Hct RDW Seg Neuts % (Manual) Lymphocytes % (Manual) Seg Neutrophils # Man Lymphocytes # (Manual) Monocytes # (Manual) PT 15.4 H INR 1.20 H ABG pH ABG pO2 ABG Base Excess Sodium 163 H* Chloride 119.7 H Carbon Dioxide 20 L BUN 117 H Creatinine 7.0 H Glucose 235 H POC Glucose Lactic Acid 2.60 H* Calcium 10.9 H Magnesium 3.20 H AST 147 H ALT 169 H Ammonia Troponin T 2.840 H* Total Protein Albumin 3.6 L Triglycerides 289 H Cholesterol 259 H LDL Cholesterol Direct 166 H HDL Cholesterol 29 L Salicylates Acetaminophen 04/18/19 04/18/19 04/19/19 14:14 14:16 00:04 WBC RBC Hgb Hct RDW Seg Neuts % (Manual) Lymphocytes % (Manual) Seg Neutrophils # Man Lymphocytes # (Manual) Monocytes # (Manual) PT INR ABG pH 7.330 L ABG pO2 98.6 H ABG Base Excess -2.2 L Sodium Chloride Carbon Dioxide BUN Creatinine Glucose POC Glucose 214 H Lactic Acid Calcium Magnesium AST ALT Ammonia 78.0 H Troponin T Total Protein Albumin Triglycerides Cholesterol LDL Cholesterol Direct HDL Cholesterol Salicylates Acetaminophen 04/19/19 04/19/19 03:45 06:40 WBC 28.7 H RBC Hgb Hct 45.6 H RDW 18.8 H Seg Neuts % (Manual) 90.0 H Lymphocytes % (Manual) 3.0 L Seg Neutrophils # Man 25.8 H Lymphocytes # (Manual) 0.9 L Monocytes # (Manual) 2.0 H PT INR ABG pH ABG pO2 ABG Base Excess Sodium 168 H* Chloride 124.4 H Carbon Dioxide 21 L BUN > 111 H Creatinine 7.7 H Glucose 275 H POC Glucose Lactic Acid Calcium Magnesium AST 70 H ALT 160 H Ammonia Troponin T Total Protein 6.0 L Albumin 3.2 L Triglycerides Cholesterol LDL Cholesterol Direct HDL Cholesterol Salicylates Acetaminophen Assessment and Plan Patient is a 68-year-old woman with a history of ESRD on HD, 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 According to the patient's clinical findings, she likely has metabolic encephalopathy. This is likely multifactorial, as patient was found to have sepsis, was febrile with fever of 101.7, had hypernatremia of 168, and uremia. Patient may also have an acute/subacute stroke, as she was ini tially noted to be more weak than usual, and CT head shows possible acute/subacute left frontal infarct. Plan: 1. Metabolic encephalopathy: - CT head: possible left frontal acute/subacute infarct - EEG: generalized slowing. No seizures or epileptiform activity. - Continue to investigate and treat metabolic abnormalities and infections per primary team. 2. Possible acute/subacute stroke: - Recommend MRI brain when patient is stable enough to undergo this (patient was unable to tolerate HD earlier today due to significant change in vitals). - Cont. ASA - Cont. statin - PT/OT/ST when patient is stable enough - DVT Ppx: recommend lovenox - Telemetry showed possible A-fib, therefore recommend cardiology consult. If patient is confirmed to have A-fib, would require discussion with family as to whether or not they would like for her to be anti-coagulated. - Recommend echo -Will sign off, as I am not covering neurology service over the weekend. Recommend consult neurologist covering service over the weekend for further neurologic monitoring and management. Thank you for allowing me to take part in the care of this patient. Camacho Galvan MD Neurology
--- NOTE | 2019-04-19 17:20 | Electroencephalogram Report ---
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 Description: Impression: 1. Generalized slowing 2. No seizures noted during recording. Description: At the onset of this recording, the patient is lying supine. The background we note a 4 Hz delta activity that has an amplitude ranging 20-30 V. There are no asymmetries in amplitude or frequency between hemispheres. Intermittent photic stimulation was not performed. Hyperventilation was not performed. Significant lead and movement artifact noted during EEG recording. Interpretation: This routine EEG performed during sleep is abnormal secondary to above findings and is consistent with bihemispheric dysfunction and encephalopathy. The above described findings of diffuse slowing is etiologically nonspecific, and similar findings have been reported in cases of toxic, metabolic, hypoxic ischemic, infectious, medication, sleep deprivation, dementia, postictal state, and other causes of diffuse and multifocal encephalopathy.
--- NOTE | 2019-04-19 18:07 | XRay Report ---
ABDOMEN, SINGLE VIEW INDICATION / CLINICAL INFORMATION: ng tube placement verification. COMPARISON: 04/19/2019 at 1524 hours FINDINGS: Enteric feeding tube is present. The tip is directed horizontally within the stomach rather than towa rd the GE junction. The tip is projecting within the proximal to midportion of the stomach. There is extensive atherosclerotic disease throughout the abdominal vasculature. IMPRESSION: Enteric feeding tube is positioned within the proximal to midportion of the stomach and i s no longer directed toward the GE junction. Signer Name: Roxy Riggs MD Signed: 04/19/2019 6:03 PM Workstation Name: [id number]
[2019-04-20] MEDS: DEXTROSE 5% IN WATER 1,000 ML IV SCH (00:52)
[2019-04-20] MEDS ORDERED: SODIUM BICARBONATE 325 MG TAB FEEDTUBE PRN (07:50)
[2019-04-20] MEDS ORDERED: LIPASE 10,500/PROTEASE 25,000/AMYLASE 43,750 (UNITS) DR CAP FEEDTUBE PRN (07:50)
[2019-04-20] MEDS ORDERED: SIMPLE SYRUP 15 ML FEEDTUBE PRN ×2 (07:50)
--- NOTE | 2019-04-20 07:55 | Progress Note ---
Assessment and Plan Assessment and plan: --Severe Hypernatremia Current Visit: Yes Status: Acute D5W, monitor electrolytes ,management per nephrology --Sepsis Current Visit: Yes Status: Acute Empiric abx, follow cultures No source of infection identified -- Acute metabolic encephalopathy Current Visit: Yes Status: Acute Multifactorial , history of CVA Hyponatremia , sepsis, Uremia -- ESRD (end stage renal disease) Current Visit: Yes Status: Chronic Cont HD, nephrology following Patient was scheduled for hemodialysis however stopped by nephrology as patient had agonal breathing and became tachycardic and tachypneic During dialysis. Patient's vital signs and respiratory status stabilized and patient was transferred back to the room, I discussed with clinical project manager Dr. Palacios, I also discussed with patient's daughter at the bedside Patient not stable to continue HD --Acute CVA (cerebrovascular accident) Current Visit: Yes Status: Acute CVA w/u, follow neurology evaluation and recommendations --Dysphagia Current Visit: Yes Status: Acute Speech evaln, GI consult. Possible PEG tube -- DVT prophylaxis-- Current Visit: Yes Status: Acute . Heparin --DO NOT RESUSCITATE status Patient is critically ill, poor prognosis, Recommended hospice. The patient's daughters refused stating They had bad experience with hospice services for their father . The patient's daughters at the bedside, patient's condition poor prognosis Discussed with them answered all their questions, they do not want hospice History Interval history: Patient seen and examined medical records reviewed Unresponsive and noncommunicative Receiving Dobbhoff feeds Family diffused new blood tests Vital signs reviewed Hospitalist Physical - Constitutional Vitals: Temp Pulse Resp BP Pulse Ox 99.7 F H 110 H 20 145/68 96 04/20/19 02:29 04/20/19 02:36 04/20/19 02:29 04/20/19 02:29 04/20/19 02:29 General appearance: Present: mild distress, cachectic, disheveled, other (unresponsive ,noncommunicative) - EENT Eyes: Present: PERRL, EOM intact - Neck Neck: Present: supple, normal ROM - Respiratory Respiratory effort: normal Respiratory: bilateral: diminished, rhonchi, negative: rales, wheezing - Cardiovascular Rhythm: regular Heart Sounds: Present: S1 & S2 - Extremities Extremities: no ischemia, No edema - Abdominal General gastrointestinal: soft, non-tender, non-distended, normal bowel sounds - Integumentary Integumentary: Present: clear, warm - Psychiatric Psychiatric: other (altered) - Neurologic Neurologic: moves all extremities Results - Labs CBC & Chem 7: 04/19/19 03:45 04/19/19 06:40 Labs: Laboratory Last Values WBC 28.7 K/mm3 (4.5-11.0) H 04/19/19 03:45 RBC 5.03 M/mm3 (3.65-5.03) 04/19/19 03:45 Hgb 14.0 gm/dl (10.1-14.3) 04/19/19 03:45 Hct 45.6 % (30.3-42.9) H 04/19/19 03:45 MCV 91 fl (79-97) 04/19/19 03:45 MCH 28 pg (28-32) 04/19/19 03:45 MCHC 31 % (30-34) 04/19/19 03:45 RDW 18.8 % (13.2-15.2) H 04/19/19 03:45 Plt Count 294 K/mm3 (140-440) 04/19/19 03:45 Add Manual Diff Complete 04/19/19 03:45 Total Counted 100 04/19/19 03:45 Seg Neutrophils % Administrative Appeals Tribunal Member 04/18/19 13:56 Seg Neuts % (Manual) 90.0 % (40.0-70.0) H 04/19/19 03:45 Band Neutrophils % 0 % 04/19/19 03:45 Lymphocytes % (Manual) 3.0 % (13.4-35.0) L 04/19/19 03:45 Reactive Lymphs % (Man) 0 % 04/19/19 03:45 Monocytes % (Manual) 7.0 % (0.0-7.3) 04/19/19 03:45 Eosinophils % (Manual) 0 % (0.0-4.3) 04/19/19 03:45 Basophils % (Manual) 0 % (0.0-1.8) 04/19/19 03:45 Metamyelocytes % 0 % 04/19/19 03:45 Myelocytes % 0 % 04/19/19 03:45 Promyelocytes % 0 % 04/19/19 03:45 Blast Cells % 0 % 04/19/19 03:45 Nucleated RBC % Not Reportable 04/19/19 03:45 Seg Neutrophils # Man 25.8 K/mm3 (1.8-7.7) H 04/19/19 03:45 Band Neutrophils # 0.0 K/mm3 04/19/19 03:45 Lymphocytes # (Manual) 0.9 K/mm3 (1.2-5.4) L 04/19/19 03:45 Abs React Lymphs (Man) 0.0 K/mm3 04/19/19 03:45 Monocytes # (Manual) 2.0 K/mm3 (0.0-0.8) H 04/19/19 03:45 Eosinophils # (Manual) 0.0 K/mm3 (0.0-0.4) 04/19/19 03:45 Basophils # (Manual) 0.0 K/mm3 (0.0-0.1) 04/19/19 03:45 Metamyelocytes # 0.0 K/mm3 04/19/19 03:45 Myelocytes # 0.0 K/mm3 04/19/19 03:45 Promyelocytes # 0.0 K/mm3 04/19/19 03:45 Blast Cells # 0.0 K/mm3 04/19/19 03:45 WBC Morphology Not Reportable 04/19/19 03:45 Hypersegmented Neuts Not Reportable 04/19/19 03:45 Hyposegmented Neuts Not Reportable 04/19/19 03:45 Hypogranular Neuts Not Reportable 04/19/19 03:45 Smudge Cells Not Reportable 04/19/19 03:45 Toxic Granulation Not Reportable 04/19/19 03:45 Toxic Vacuolation Not Reportable 04/19/19 03:45 Dohle Bodies Not Reportable 04/19/19 03:45 Pelger-Huet Anomaly Not Reportable 04/19/19 03:45 Troy Rods Not Reportable 04/19/19 03:45 Platelet Estimate Consistent w auto 04/19/19 03:45 Clumped Platelets Not Reportable 04/19/19 03:45 Plt Clumps, EDTA Not Reportable 04/19/19 03:45 Large Platelets Not Reportable 04/19/19 03:45 Giant Platelets Not Reportable 04/19/19 03:45 Platelet Satelliting Not Reportable 04/19/19 03:45 Plt Morphology Comment Not Reportable 04/19/19 03:45 RBC Morphology Not Reportable 04/19/19 03:45 Dimorphic RBCs Not Reportable 04/19/19 03:45 Polychromasia Not Reportable 04/19/19 03:45 Hypochromasia Not Reportable 04/19/19 03:45 Poikilocytosis Not Reportable 04/19/19 03:45 Anisocytosis Not Reportable 04/19/19 03:45 Microcytosis Not Reportable 04/19/19 03:45 Macrocytosis Not Reportable 04/19/19 03:45 Spherocytes Not Reportable 04/19/19 03:45 Pappenheimer Bodies Not Reportable 04/19/19 03:45 Sickle Cells Not Reportable 04/19/19 03:45 Target Cells Not Reportable 04/19/19 03:45 Tear Drop Cells Not Reportable 04/19/19 03:45 Ovalocytes Rare 04/19/19 03:45 Stomatocytes Few 04/18/19 13:56 Helmet Cells Not Reportable 04/19/19 03:45 [place] Bodies Not Reportable 04/19/19 03:45 [place] Rings Not Reportable 04/19/19 03:45 Shahbaz Cells Not Reportable 04/19/19 03:45 Bite Cells Not Reportable 04/19/19 03:45 Crenated Cell Not Reportable 04/19/19 03:45 Elliptocytes Not Reportable 04/19/19 03:45 Acanthocytes (Spur) Not Reportable 04/19/19 03:45 Rouleaux Not Reportable 04/19/19 03:45 Hemoglobin C Crystals Not Reportable 04/19/19 03:45 Schistocytes Rare 04/19/19 03:45 Malaria parasites Not Reportable 04/19/19 03:45 [place] Bodies Not Reportable 04/19/19 03:45 Hem Pathologist Commnt No 04/19/19 03:45 PT 15.4 Sec. (12.2-14.9) H 04/18/19 13:56 INR 1.20 (0.87-1.13) H 04/18/19 13:56 APTT 26.7 Sec. (24.2-36.6) 04/18/19 13:56 ABG pH 7.330 pH Units (7.350-7.450) L 04/18/19 14:14 ABG pCO2 46.7 mm Hg 04/18/19 14:14 ABG pO2 98.6 mm Hg (80.0-90.0) H 04/18/19 14:14 ABG HCO3 24.0 mmol/L (20.0-26.0) 04/18/19 14:14 ABG O2 Saturation 97.0 % (95.0-99.0) 04/18/19 14:14 ABG O2 Content 19.6 (0.0-44) 04/18/19 14:14 ABG Base Excess -2.2 mmol/L (-2.0-3.0) L 04/18/19 14:14 ABG Hemoglobin 14.6 gm/dl (12.0-16.0) 04/18/19 14:14 ABG Carboxyhemoglobin 1.2 % (0.0-5.0) 04/18/19 14:14 ABG Methemoglobin 0.6 % (0.0-1.5) 04/18/19 14:14 Oxyhemoglobin 95.3 % (95.0-99.0) 04/18/19 14:14 FiO2 100 % 04/18/19 14:14 Sodium 168 mmol/L (137-145) H* 04/19/19 06:40 Potassium 4.7 mmol/L (3.6-5.0) 04/19/19 06:40 Chloride 124.4 mmol/L (98-107) H 04/19/19 06:40 Carbon Dioxide 21 mmol/L (22-30) L 04/19/19 06:40 Anion Gap 27 mmol/L 04/19/19 06:40 BUN > 111 mg/dL (7-17) H 04/19/19 06:40 Creatinine 7.7 mg/dL (0.7-1.2) H 04/19/19 06:40 Estimated GFR 5 ml/min 04/19/19 06:40 BUN/Creatinine Ratio 14 % 04/19/19 06:40 Glucose 275 mg/dL (65-100) H 04/19/19 06:40 POC Glucose 214 (70-105) H 04/18/19 14:16 Hemoglobin A1c 5.8 % (4-6) 04/19/19 00:04 Lactic Acid 1.70 mmol/L (0.7-2.0) 04/18/19 16:24 Calcium 10.0 mg/dL (8.4-10.2) 04/19/19 06:40 Magnesium 3.20 mg/dL (1.7-2.3) H 04/18/19 13:56 Total Bilirubin 0.50 mg/dL (0.1-1.2) 04/19/19 06:40 AST 70 units/L (5-40) H 04/19/19 06:40 ALT 160 units/L (7-56) H 04/19/19 06:40 Alkaline Phosphatase 84 units/L (35-129) 04/19/19 06:40 Ammonia 78.0 umol/L (25-60) H 04/19/19 00:04 Total Creatine Kinase 94 units/L (30-135) 04/18/19 13:56 Troponin T 2.840 ng/mL (0.00-0.029) H* 04/18/19 13:56 Total Protein 6.0 g/dL (6.3-8.2) L 04/19/19 06:40 Albumin 3.2 g/dL (3.9-5) L 04/19/19 06:40 Albumin/Globulin Ratio 1.1 % 04/19/19 06:40 Triglycerides 289 mg/dL (2-149) H 04/18/19 13:56 Cholesterol 259 mg/dL (50-199) H 04/18/19 13:56 LDL Cholesterol Direct 166 mg/dL (50-130) H 04/18/19 13:56 HDL Cholesterol 29 mg/dL (40-59) L 04/18/19 13:56 Cholesterol/HDL Ratio 8.93 % 04/18/19 13:56 TSH 0.322 mlU/mL (0.270-4.200) 04/18/19 13:56 Free T4 1.33 ng/dL (0.76-1.46) 04/18/19 13:56 Urine Color Yellow (Yellow) 04/18/19 16:37 Urine Turbidity Cloudy (Clear) 04/18/19 16:37 Urine pH 5.0 (5.0-7.0) 04/18/19 16:37 Ur Specific [place] 1.014 (1.003-1.030) 04/18/19 16:37 Urine Protein 100 mg/dl mg/dL (Negative) 04/18/19 16:37 Urine Glucose (UA) 50 mg/dL (Negative) 04/18/19 16:37 Urine Ketones Neg mg/dL (Negative) 04/18/19 16:37 Urine Blood Neg (Negative) 04/18/19 16:37 Urine Nitrite Neg (Negative) 04/18/19 16:37 Urine Bilirubin Neg (Negative) 04/18/19 16:37 Urine Urobilinogen < 2.0 mg/dL (<2.0) 04/18/19 16:37 Ur Leukocyte Esterase Neg (Negative) 04/18/19 16:37 Urine WBC (Auto) 1.0 /HPF (0.0-6.0) 04/18/19 16:37 Urine RBC (Auto) 1.0 /HPF (0.0-6.0) 04/18/19 16:37 U Epithel Cells (Auto) 9.0 /HPF (0-13.0) 04/18/19 16:37 Urine Mucus Few /HPF 04/18/19 16:37 Salicylates < 0.3 mg/dL (2.8-20.0) L 04/18/19 13:56 Urine Opiates Screen Presumptive negative 04/18/19 16:37 Urine Methadone Screen Presumptive negative 04/18/19 16:37 Acetaminophen < 5.0 ug/mL (10.0-30.0) L 04/18/19 13:56 Ur Barbiturates Screen Presumptive negative 04/18/19 16:37 Ur Phencyclidine Scrn Presumptive negative 04/18/19 16:37 Ur Amphetamines Screen Presumptive negative 04/18/19 16:37 U Benzodiazepines Scrn Presumptive negative 04/18/19 16:37 Urine Cocaine Screen Presumptive negative 04/18/19 16:37 U Marijuana (THC) Screen Presumptive negative 04/18/19 16:37 Drugs of Abuse Note Disclamer 04/18/19 16:37 Plasma/Serum Alcohol < 0.01 % (0-0.07) 04/18/19 13:56 Hepatitis A IgM Ab Non-reactive (NonReactive) 04/19/19 06:40 Hep Bs Antigen Non-reactive (Negative) 04/19/19 06:40 Hep B Core IgM Ab Non-reactive (NonReactive) 04/19/19 06:40 Hepatitis C Antibody Non-reactive (NonReactive) 04/19/19 06:40 Blood Type A POSITIVE 04/18/19 13:56 Antibody Screen Negative 04/18/19 13:56 Active Medications - Current Medications Current Medications: Generic Name Dose Route Start Last Admin Trade Name Freq PRN Reason Stop Dose Admin Acetaminophen 650 mg 04/18/19 22:54 Tylenol PO Q4H PRN Pain MILD(1-3)/Fever >100.5/MCDANIELS Lipase/Protease/Amylase 1 each 04/20/19 07:[address] 10,500 Unit FEEDTUBE PRN PRN For Clogged Feeding Tube Aspirin 325 mg 04/19/19 10:00 04/19/19 11:04 Aspirin PO Not Given QDAY TRINA Atorvastatin Calcium 40 mg 04/19/19 22:00 04/19/19 23:29 Lipitor PO Not Given QHS TRINA Dextrose 50 ml 04/18/19 14:00 D50w (25gm) Syringe IV PRN TRINA Famotidine 10 mg 04/19/19 10:00 04/19/19 23:50 Pepcid IV 10 mg BID TRINA Administration Hydromorphone HCl 0.5 mg 04/18/19 22:54 Dilaudid IV Q3H PRN Pain , Severe (7-10) Dextrose 1,000 mls @ 75 mls/hr 04/18/19 23:00 04/20/19 00:52 D5w IV 75 mls/hr DIRECT TRINA Administration Ceftriaxone Sodium 1 gm in 50 mls @ 100 mls/hr 04/19/19 10:00 04/19/19 11:00 Rocephin/Ns 1 Gm/50 Ml IV 100 mls/hr Q24HR TRINA Administration Protocol Sodium Chloride 100 mls @ 999 mls/hr 04/19/19 09:00 Nacl 0.9% IV SHANNAN PRN Hypotension Metoclopramide HCl 2.5 mg 04/18/19 23:01 04/19/19 01:29 Reglan IV 2.5 mg Q6H PRN Administration Nausea And Vomiting Morphine Sulfate 2 mg 04/18/19 22:54 Morphine IV Q4H PRN Pain, Moderate (4-6) Simple Syrup 15 ml 04/20/19 07:50 Simple Syrup FEEDTUBE PRN PRN Hypoglycemia Simple Syrup 30 ml 04/20/19 07:50 Simple Syrup FEEDTUBE PRN PRN Hypoglycemia Sodium Bicarbonate 325 mg 04/20/19 07:50 Sodium Bicarbonate FEEDTUBE PRN PRN For Clogged Feeding Tube Sodium Chloride 10 ml 04/19/19 10:00 04/19/19 11:03 Sodium Chloride Flush Syringe 10 Ml IV 10 ml BID TRINA Administration Sodium Chloride 10 ml 04/18/19 22:54 Sodium Chloride Flush Syringe 10 Ml IV PRN PRN LINE FLUSH Sodium Chloride 10 ml 04/19/19 07:31 Sodium Chloride Flush Syringe 10 Ml IV PRN PRN LINE FLUSH Nutrition/Malnutrition Assess - Dietary Evaluation Nutrition/Malnutrition Findings: Nutrition Notes Start: 04/19/19 10:46 Freq: Status: Active Protocol: Document 04/19/19 10:46 GINNA (Rec: 04/19/19 11:00 GINNA [id number]) Co-Sign 04/19/19 10:46 LP Nutrition Notes Need for Assessment generated from: Low BMI Initial or Follow up Assessment Current Diagnosis CKD (stage V CKD),Hypertension ,Stroke Other Pertinent Diagnosis On HD, Current Diet NPO Labs/Tests BG 275 BUN 111 Cr 7.7 Pertinent Medications D5W at 75 ml/hr Height 5 ft 5 in Weight 47.5 kg Usual Body Weight 55 g [place] Body Weight (kg) 56.81 BMI 17.4 Intake Prior to Admission Poor Weight change and time frame 13.6% wt loss in 3 months. Weight Status Underweight Subjective/Other Information RD screen low BMI. Pt was lethargic during visit, spoke to pt's daughter. Daughter said that pt started losing wt after her first stroke in December. Pt daughter stated that pt had not been eating for about a week. HOG MAN going to evaluate pt for swallowing. Pt NPO for echo and HOG MAN. Noted muscle depletion in deltoid and legs. Burn Absent Trauma Absent GI Symptoms None Difficulty In Swallowing Current % PO Negligible Minimum of two criteria Yes Energy Intake (severe) < or equal to 50% Estimated Energy Requirement > or equal to 5 days Body Fat Depletion Moderate depletion (severe) Muscle Mass Moderate Depletion (severe) #1 Nutrition Diagnosis Malnutrition Etiology Stroke, unresponsiveness As Evidenced by Signs and Symptoms < or equal 50% of estimated energy requirement for > or equal to five days, moderate muscle and fat depletion in deltoid and legs Is patient on ventilator? No Is Patient Ambulatory and/or Out of Bed No [facility] 1207.104 Kcal/Kg value to use for calculation 35 Approximate Energy Requirements Using 1663 kcal/Kg Calculation Used for Recommendations Kcal/kg Additional Notes Protein: 57g (>1.2g/kg) Fluid: 0174-7293 ml or per MD Nutrition Intervention Change Diet Order: Advance diet when medically feasible Add Supplement/Snack (indicate name/kcal Order Nepro when medically /protein ) feasible Provides kCal: 850 Provides Protein (gm) 38 Goal #1 Diet advancement Goal #2 Meet atleast 80% of energy and protein needs Goal #3 Wt gain/maintenance Follow-Up By: 04/22/19 Additional Comments F/U for diet advancement
--- NOTE | 2019-04-20 10:09 | Gastroenterology Progress Note ---
Assessment and Plan - Patient Problems (1) Neurogenic dysphagia Current Visit: Yes Status: Acute Plan to address problem: - Long d/w family re: risks/benefits of EGD/PEG. They are continuing Dobhoff for now; they are unsure about PEG (but may be needed for palliation). - Patient had baseline significant neurologic deficits, and was dependent on others for all IADLs/ADLs. - The family is considering hospice, and I would agree with that decision given her profound deficits. - Continue Dobhoff feeds; we will sign off; please call if Palliative PEG needed for transition of care to alternate facility. Subjective Date of service: 04/20/19 Principal diagnosis: Neurogenic Dysphagia Interval history: The patient has been relatively stable overnight. Dobhoff placed, and receiving meds/flushes/feeds without event. Objective - Constitutional Vitals: Temp Pulse Resp BP Pulse Ox 100.3 F H 111 H 20 169/78 93 04/20/19 07:45 04/20/19 07:46 04/20/19 07:45 04/20/19 07:45 04/20/19 09:24 General appearance: no acute distress - Respiratory Respiratory effort: normal - Cardiovascular Rhythm: regular Heart Sounds: Present: S1 & S2 - Gastrointestinal General gastrointestinal: Present: soft, non-tender, non-distended - Labs CBC & Chem 7: 04/19/19 03:45 04/19/19 06:40 Labs: Laboratory Results - last 24 hr 04/19/19 06:40 Hepatitis A IgM Ab Non-reactive Hep Bs Antigen Non-reactive Hep B Core IgM Ab Non-reactive Hepatitis C Antibody Non-reactive
[2019-04-20] MEDS: FAMOTIDINE 20 MG/2 ML INJ IV SCH ×2 (10:59→21:45)
[2019-04-20] MEDS: cefTRIAXone/NS 1 GM/50 ML 1 GM/50 ML BAG IV SCH (11:00)
[2019-04-20] MEDS: ASPIRIN 325 MG TAB PO SCH (11:01)
--- NOTE | 2019-04-20 11:55 | Progress Note ---
Assessment and Plan - Patient Problems (1) Failure to thrive in adult Current Visit: Yes Status: Acute Plan to address problem: Patient with severe protein calorie malnutrition and failure to thrive (2) Acute encephalopathy Current Visit: Yes Status: Acute Plan to address problem: Metabolic encephalopathy secondary to uremia and hypernatremia. Continue free water replacement. Intolerant of dialysis (3) Hypernatremia Current Visit: Yes Status: Acute Plan to address problem: Continue free water replacement and follow-up sodium. Nurse reports that Prasanna rivera's daughter refused labs being drawn. (4) ESRD (end stage renal disease) Current Visit: Yes Status: Chronic Plan to address problem: Patient intolerant of dialysis. She did DO NOT RESUSCITATE. She has not been doing well on dialysis even before this. I discussed with the daughter that in my opinion, I'll be doing patient home by putting on dialysis she will likely or deteriorate again. Discussed the need to switch to comfort measures only. She expressed understanding though she had hoped that we will try dialysis again. I did not advice we do that again. Discussed consideration of hospice but she did not have a good experience with hospice with her father and would not like to have hospice care. Patient's prognosis is dismal and this was explained to the daughter (5) Leukocytosis Current Visit: Yes Status: Acute Plan to address problem: Leukocytosis rule out sepsis. Cultures negative so far. Patient on empiric antibiotics Subjective Date of service: 04/20/19 Principal diagnosis: Neurogenic Dysphagia Interval history: Patient seen lying in bed. Daughter at the bedside. She is not interacting. She is on oxygen via nasal cannula. Mildly dyspneic at rest. She did not tolerated dialysis yesterday. After 5 minutes, patient did develop Agonal breathing and severe tachycardia and dialysis had to be stopped. She is a DO NOT RESUSCITATE Objective - Exam Narrative Exam: Frail elderly female lying in bed in mild respiratory distress HEENT: NCAT, Neck: Supple, no venous distention CVS: S1S2 RRR with no murmur, rub or gallop Chest: Diminished breath sounds bilaterally Abdomen: Protuberant, soft, nontender, no organomegaly, bowel sounds are present Extremities: Severe muscle wasting Neuro: Nonverbal, Lethargic, not following commands and not opening eyes on request - Vital Signs Vital signs: Vital Signs - 12hr 02/01/20 02/01/20 02/01/20 01:05 02:29 02:36 Temperature 99.7 F H Pulse Rate 110 H Respiratory 20 Rate Blood Pressure 145/68 O2 Sat by Pulse 94 96 Oximetry 04/20/19 04/20/19 04/20/19 07:45 07:46 09:24 Temperature 100.3 F H Pulse Rate 83 111 H Respiratory 20 Rate Blood Pressure 169/78 O2 Sat by Pulse 83 L 92 93 Oximetry - Lab 04/19/19 03:45 04/19/19 06:40 Most recent lab results ABG pH 7.330 pH Units (7.350-7.450) L 04/18/19 14:14 ABG pCO2 46.7 mm Hg 04/18/19 14:14 ABG pO2 98.6 mm Hg (80.0-90.0) H 04/18/19 14:14 ABG HCO3 24.0 mmol/L (20.0-26.0) 04/18/19 14:14 ABG O2 Saturation 97.0 % (95.0-99.0) 04/18/19 14:14 Calcium 10.0 mg/dL (8.4-10.2) 04/19/19 06:40 Magnesium 3.20 mg/dL (1.7-2.3) H 04/18/19 13:56 Medications & Allergies - Medications Allergies/Adverse Reactions: Allergies Insulins Allergy (Verified 04/18/19 14:15) Hives iron Allergy (Verified 04/18/19 14:15) Hives isosorbide Allergy (Verified 04/18/19 14:15) Hives ondansetron [From Zofran] Allergy (Verified 04/18/19 14:15) Hives Active Medications: Generic Name Dose Route Start Last Admin Trade Name Freq PRN Reason Stop Dose Admin Acetaminophen 650 mg 04/18/19 22:54 Tylenol PO Q4H PRN Pain MILD(1-3)/Fever >100.5/MCDANIELS Lipase/Protease/Amylase 1 each 04/20/19 07:[address] 10,500 Unit FEEDTUBE PRN PRN For Clogged Feeding Tube Aspirin 325 mg 04/19/19 10:00 04/20/19 11:01 Aspirin PO Not Given QDAY TRINA Atorvastatin Calcium 40 mg 04/19/19 22:00 04/19/19 23:29 Lipitor PO Not Given QHS TRINA Dextrose 50 ml 04/18/19 14:00 D50w (25gm) Syringe IV PRN TRINA Famotidine 10 mg 04/19/19 10:00 04/20/19 10:59 Pepcid IV 10 mg BID TRINA Administration Hydromorphone HCl 0.5 mg 04/18/19 22:54 Dilaudid IV Q3H PRN Pain , Severe (7-10) Dextrose 1,000 mls @ 75 mls/hr 04/18/19 23:00 04/20/19 00:52 D5w IV 75 mls/hr DIRECT TRINA Administration Ceftriaxone Sodium 1 gm in 50 mls @ 100 mls/hr 04/19/19 10:00 04/20/19 11:00 Rocephin/Ns 1 Gm/50 Ml IV 100 mls/hr Q24HR TRINA Administration Protocol Sodium Chloride 100 mls @ 999 mls/hr 04/19/19 09:00 Nacl 0.9% IV SHANNAN PRN Hypotension Metoclopramide HCl 2.5 mg 04/18/19 23:01 04/19/19 01:29 Reglan IV 2.5 mg Q6H PRN Administration Nausea And Vomiting Morphine Sulfate 2 mg 04/18/19 22:54 Morphine IV Q4H PRN Pain, Moderate (4-6) Simple Syrup 15 ml 04/20/19 07:50 Simple Syrup FEEDTUBE PRN PRN Hypoglycemia Simple Syrup 30 ml 04/20/19 07:50 Simple Syrup FEEDTUBE PRN PRN Hypoglycemia Sodium Bicarbonate 325 mg 04/20/19 07:50 Sodium Bicarbonate FEEDTUBE PRN PRN For Clogged Feeding Tube Sodium Chloride 10 ml 04/19/19 10:00 04/20/19 11:01 Sodium Chloride Flush Syringe 10 Ml IV 10 ml BID TRINA Administration Sodium Chloride 10 ml 04/18/19 22:54 Sodium Chloride Flush Syringe 10 Ml IV PRN PRN LINE FLUSH Sodium Chloride 10 ml 04/19/19 07:31 Sodium Chloride Flush Syringe 10 Ml IV PRN PRN LINE FLUSH
[2019-04-20] MEDS ORDERED: LORazepam 2 MG/ML VIAL IM PRN (14:31)
[2019-04-20] MEDS ORDERED: ACETAMINOPHEN 325 MG TAB FEEDTUBE PRN (14:32)
[2019-04-20] MEDS: METOPROLOL TARTRATE 25 MG TAB FEEDTUBE SCH ×2 (14:39→22:35)
[2019-04-20] MEDS: ACETAMINOPHEN 325 MG/10.15 ML ORAL LIQD UNIT DOSE FEEDTUBE PRN (14:47)
[2019-04-20] MEDS ORDERED: METOPROLOL TARTRATE 25 MG TAB PO SCH (22:00)
[2019-04-20] MEDS ORDERED: METOPROLOL TARTRATE 25 MG TAB FEEDTUBE SCH (22:00)
[2019-04-21] MEDS: ACETAMINOPHEN 325 MG/10.15 ML ORAL LIQD UNIT DOSE FEEDTUBE PRN (02:24)
[2019-04-21] MEDS: DEXTROSE 5% IN WATER 1,000 ML IV SCH (02:48)
--- NOTE | 2019-04-21 08:10 | Progress Note ---
Assessment and Plan Assessment and plan: --Severe hyper glycemia/diabetes mellitus Patient is allergic to insulin, add low-dose oral hypoglycemics Monitor blood sugars are just as needed Tube Feeding Glucerna --Severe Hypernatremia Current Visit: Yes Status: Acute D5W, monitor electrolytes ,management per nephrology. Mild improvement of electrolytes --Sepsis Current Visit: Yes Status: Acute Empiric abx, urine cultures enterococcus Order 1 dose of vancomycin -- Acute metabolic encephalopathy Current Visit: Yes Status: Acute Multifactorial , history of CVA Hyponatremia , sepsis, Uremia -- ESRD (end stage renal disease) Current Visit: Yes Status: Chronic Patient was scheduled for hemodialysis however stopped by nephrology as patient had agonal breathing and became tachycardic and tachypneic She does not a candidate for hemodialysis, nephrology recommended hospice Discussed extensively with the family --Acute CVA (cerebrovascular accident) Current Visit: Yes Status: Acute CVA w/u, follow neurology evaluation and recommendations Patient is unstable for any CVA workup --Dysphagia Current Visit: Yes Status: Acute Speech evaln, GI consult. Not a candidate for GI workup Continue Dobbhoff feeds ,Possible PEG tube[family not decided] --Severe malnutrition; hypoalbuminemia nutrition supplements, treat underlying cause, tube feeding -- DVT prophylaxis-- Current Visit: Yes Status: Acute . Heparin --DO NOT RESUSCITATE status Patient is critically ill, poor prognosis, Recommended hospice. The patient's daughters refused stating They had bad experience with hospice services for their father . The patient's daughters at the bedside, patient's condition poor prognosis Discussed with them answered all their questions, they do not want hospice History Interval history: Patient is unresponsive, in mild distress On high flow oxygen, Dobbhoff feeds Patient's daughters at the bedside DO NOT RESUSCITATE status Not a candidate for any surgical procedure Heart a candidate for hemodialysis Recommend hospice Family refused Vital signs noted Hospitalist Physical - Constitutional Vitals: Temp Pulse Resp BP Pulse Ox 99.4 F 113 H 22 140/60 96 04/21/19 07:16 04/21/19 07:16 04/21/19 07:16 04/21/19 07:16 04/21/19 07:16 General appearance: Present: mild distress, cachectic, disheveled, other (un responsive ,noncommunicative) - EENT Eyes: Present: PERRL, EOM intact - Neck Neck: Present: supple - Respiratory Respiratory effort: labored Respiratory: bilateral: diminished, rhonchi, negative: rales, wheezing - Cardiovascular Rhythm: regular Heart Sounds: Present: S1 & S2 - Extremities Extremities: no ischemia, No edema - Abdominal General gastrointestinal: soft, non-tender, non-distended, normal bowel sounds - Integumentary Integumentary: Present: clear, warm - Psychiatric Psychiatric: other (noncommunicative) - Neurologic Neurologic: other (noncommunicative) Results - Labs CBC & Chem 7: 04/21/19 14:55 04/21/19 14:55 Labs: Laboratory Last Values WBC 28.7 K/mm3 (4.5-11.0) H 04/19/19 03:45 RBC 5.03 M/mm3 (3.65-5.03) 04/19/19 03:45 Hgb 14.0 gm/dl (10.1-14.3) 04/19/19 03:45 Hct 45.6 % (30.3-42.9) H 04/19/19 03:45 MCV 91 fl (79-97) 04/19/19 03:45 MCH 28 pg (28-32) 04/19/19 03:45 MCHC 31 % (30-34) 04/19/19 03:45 RDW 18.8 % (13.2-15.2) H 04/19/19 03:45 Plt Count 294 K/mm3 (140-440) 04/19/19 03:45 Add Manual Diff Complete 04/19/19 03:45 Total Counted 100 04/19/19 03:45 Seg Neutrophils % Chip Tuner 04/18/19 13:56 Seg Neuts % (Manual) 90.0 % (40.0-70.0) H 04/19/19 03:45 Band Neutrophils % 0 % 04/19/19 03:45 Lymphocytes % (Manual) 3.0 % (13.4-35.0) L 04/19/19 03:45 Reactive Lymphs % (Man) 0 % 04/19/19 03:45 Monocytes % (Manual) 7.0 % (0.0-7.3) 04/19/19 03:45 Eosinophils % (Manual) 0 % (0.0-4.3) 04/19/19 03:45 Basophils % (Manual) 0 % (0.0-1.8) 04/19/19 03:45 Metamyelocytes % 0 % 04/19/19 03:45 Myelocytes % 0 % 04/19/19 03:45 Promyelocytes % 0 % 04/19/19 03:45 Blast Cells % 0 % 04/19/19 03:45 Nucleated RBC % Not Reportable 04/19/19 03:45 Seg Neutrophils # Man 25.8 K/mm3 (1.8-7.7) H 04/19/19 03:45 Band Neutrophils # 0.0 K/mm3 04/19/19 03:45 Lymphocytes # (Manual) 0.9 K/mm3 (1.2-5.4) L 04/19/19 03:45 Abs React Lymphs (Man) 0.0 K/mm3 04/19/19 03:45 Monocytes # (Manual) 2.0 K/mm3 (0.0-0.8) H 04/19/19 03:45 Eosinophils # (Manual) 0.0 K/mm3 (0.0-0.4) 04/19/19 03:45 Basophils # (Manual) 0.0 K/mm3 (0.0-0.1) 04/19/19 03:45 Metamyelocytes # 0.0 K/mm3 04/19/19 03:45 Myelocytes # 0.0 K/mm3 04/19/19 03:45 Promyelocytes # 0.0 K/mm3 04/19/19 03:45 Blast Cells # 0.0 K/mm3 04/19/19 03:45 WBC Morphology Not Reportable 04/19/19 03:45 Hypersegmented Neuts Not Reportable 04/19/19 03:45 Hyposegmented Neuts Not Reportable 04/19/19 03:45 Hypogranular Neuts Not Reportable 04/19/19 03:45 Smudge Cells Not Reportable 04/19/19 03:45 Toxic Granulation Not Reportable 04/19/19 03:45 Toxic Vacuolation Not Reportable 04/19/19 03:45 Dohle Bodies Not Reportable 04/19/19 03:45 Pelger-Huet Anomaly Not Reportable 04/19/19 03:45 Troy Rods Not Reportable 04/19/19 03:45 Platelet Estimate Consistent w auto 04/19/19 03:45 Clumped Platelets Not Reportable 04/19/19 03:45 Plt Clumps, EDTA Not Reportable 04/19/19 03:45 Large Platelets Not Reportable 04/19/19 03:45 Giant Platelets Not Reportable 04/19/19 03:45 Platelet Satelliting Not Reportable 04/19/19 03:45 Plt Morphology Comment Not Reportable 04/19/19 03:45 RBC Morphology Not Reportable 04/19/19 03:45 Dimorphic RBCs Not Reportable 04/19/19 03:45 Polychromasia Not Reportable 04/19/19 03:45 Hypochromasia Not Reportable 04/19/19 03:45 Poikilocytosis Not Reportable 04/19/19 03:45 Anisocytosis Not Reportable 04/19/19 03:45 Microcytosis Not Reportable 04/19/19 03:45 Macrocytosis Not Reportable 04/19/19 03:45 Spherocytes Not Reportable 04/19/19 03:45 Pappenheimer Bodies Not Reportable 04/19/19 03:45 Sickle Cells Not Reportable 04/19/19 03:45 Target Cells Not Reportable 04/19/19 03:45 Tear Drop Cells Not Reportable 04/19/19 03:45 Ovalocytes Rare 04/19/19 03:45 Stomatocytes Few 04/18/19 13:56 Helmet Cells Not Reportable 04/19/19 03:45 [place] Bodies Not Reportable 04/19/19 03:45 Warren Rings Not Reportable 04/19/19 03:45 Shahbaz Cells Not Reportable 04/19/19 03:45 Bite Cells Not Reportable 04/19/19 03:45 Crenated Cell Not Reportable 04/19/19 03:45 Elliptocytes Not Reportable 04/19/19 03:45 Acanthocytes (Spur) Not Reportable 04/19/19 03:45 Rouleaux Not Reportable 04/19/19 03:45 Hemoglobin C Crystals Not Reportable 04/19/19 03:45 Schistocytes Rare 04/19/19 03:45 Malaria parasites Not Reportable 04/19/19 03:45 Cornell Bodies Not Reportable 04/19/19 03:45 Hem Pathologist Commnt No 04/19/19 03:45 PT 15.4 Sec. (12.2-14.9) H 04/18/19 13:56 INR 1.20 (0.87-1.13) H 04/18/19 13:56 APTT 26.7 Sec. (24.2-36.6) 04/18/19 13:56 ABG pH 7.330 pH Units (7.350-7.450) L 04/18/19 14:14 ABG pCO2 46.7 mm Hg 04/18/19 14:14 ABG pO2 98.6 mm Hg (80.0-90.0) H 04/18/19 14:14 ABG HCO3 24.0 mmol/L (20.0-26.0) 04/18/19 14:14 ABG O2 Saturation 97.0 % (95.0-99.0) 04/18/19 14:14 ABG O2 Content 19.6 (0.0-44) 04/18/19 14:14 ABG Base Excess -2.2 mmol/L (-2.0-3.0) L 04/18/19 14:14 ABG Hemoglobin 14.6 gm/dl (12.0-16.0) 04/18/19 14:14 ABG Carboxyhemoglobin 1.2 % (0.0-5.0) 04/18/19 14:14 ABG Methemoglobin 0.6 % (0.0-1.5) 04/18/19 14:14 Oxyhemoglobin 95.3 % (95.0-99.0) 04/18/19 14:14 FiO2 100 % 04/18/19 14:14 Sodium 168 mmol/L (137-145) H* 04/19/19 06:40 Potassium 4.7 mmol/L (3.6-5.0) 04/19/19 06:40 Chloride 124.4 mmol/L (98-107) H 04/19/19 06:40 Carbon Dioxide 21 mmol/L (22-30) L 04/19/19 06:40 Anion Gap 27 mmol/L 04/19/19 06:40 BUN > 111 mg/dL (7-17) H 04/19/19 06:40 Creatinine 7.7 mg/dL (0.7-1.2) H 04/19/19 06:40 Estimated GFR 5 ml/min 04/19/19 06:40 BUN/Creatinine Ratio 14 % 04/19/19 06:40 Glucose 275 mg/dL (65-100) H 04/19/19 06:40 POC Glucose 214 (70-105) H 04/18/19 14:16 Hemoglobin A1c 5.8 % (4-6) 04/19/19 00:04 Lactic Acid 1.70 mmol/L (0.7-2.0) 04/18/19 16:24 Calcium 10.0 mg/dL (8.4-10.2) 04/19/19 06:40 Magnesium 3.20 mg/dL (1.7-2.3) H 04/18/19 13:56 Total Bilirubin 0.50 mg/dL (0.1-1.2) 04/19/19 06:40 AST 70 units/L (5-40) H 04/19/19 06:40 ALT 160 units/L (7-56) H 04/19/19 06:40 Alkaline Phosphatase 84 units/L (35-129) 04/19/19 06:40 Ammonia 78.0 umol/L (25-60) H 04/19/19 00:04 Total Creatine Kinase 94 units/L (30-135) 04/18/19 13:56 Troponin T 2.840 ng/mL (0.00-0.029) H* 04/18/19 13:56 Total Protein 6.0 g/dL (6.3-8.2) L 04/19/19 06:40 Albumin 3.2 g/dL (3.9-5) L 04/19/19 06:40 Albumin/Globulin Ratio 1.1 % 04/19/19 06:40 Triglycerides 289 mg/dL (2-149) H 04/18/19 13:56 Cholesterol 259 mg/dL (50-199) H 04/18/19 13:56 LDL Cholesterol Direct 166 mg/dL (50-130) H 04/18/19 13:56 HDL Cholesterol 29 mg/dL (40-59) L 04/18/19 13:56 Cholesterol/HDL Ratio 8.93 % 04/18/19 13:56 TSH 0.322 mlU/mL (0.270-4.200) 04/18/19 13:56 Free T4 1.33 ng/dL (0.76-1.46) 04/18/19 13:56 Urine Color Yellow (Yellow) 04/18/19 16:37 Urine Turbidity Cloudy (Clear) 04/18/19 16:37 Urine pH 5.0 (5.0-7.0) 04/18/19 16:37 Ur Specific [place] 1.014 (1.003-1.030) 04/18/19 16:37 Urine Protein 100 mg/dl mg/dL (Negative) 04/18/19 16:37 Urine Glucose (UA) 50 mg/dL (Negative) 04/18/19 16:37 Urine Ketones Neg mg/dL (Negative) 04/18/19 16:37 Urine Blood Neg (Negative) 04/18/19 16:37 Urine Nitrite Neg (Negative) 04/18/19 16:37 Urine Bilirubin Neg (Negative) 04/18/19 16:37 Urine Urobilinogen < 2.0 mg/dL (<2.0) 04/18/19 16:37 Ur Leukocyte Esterase Neg (Negative) 04/18/19 16:37 Urine WBC (Auto) 1.0 /HPF (0.0-6.0) 04/18/19 16:37 Urine RBC (Auto) 1.0 /HPF (0.0-6.0) 04/18/19 16:37 U Epithel Cells (Auto) 9.0 /HPF (0-13.0) 04/18/19 16:37 Urine Mucus Few /HPF 04/18/19 16:37 Salicylates < 0.3 mg/dL (2.8-20.0) L 04/18/19 13:56 Urine Opiates Screen Presumptive negative 04/18/19 16:37 Urine Methadone Screen Presumptive negative 04/18/19 16:37 Acetaminophen < 5.0 ug/mL (10.0-30.0) L 04/18/19 13:56 Ur Barbiturates Screen Presumptive negative 04/18/19 16:37 Ur Phencyclidine Scrn Presumptive negative 04/18/19 16:37 Ur Amphetamines Screen Presumptive negative 04/18/19 16:37 U Benzodiazepines Scrn Presumptive negative 04/18/19 16:37 Urine Cocaine Screen Presumptive negative 04/18/19 16:37 U Marijuana (THC) Screen Presumptive negative 04/18/19 16:37 Drugs of Abuse Note Disclamer 04/18/19 16:37 Plasma/Serum Alcohol < 0.01 % (0-0.07) 04/18/19 13:56 Hepatitis A IgM Ab Non-reactive (NonReactive) 04/19/19 06:40 Hep Bs Antigen Non-reactive (Negative) 04/19/19 06:40 Hep B Core IgM Ab Non-reactive (NonReactive) 04/19/19 06:40 Hepatitis C Antibody Non-reactive (NonReactive) 04/19/19 06:40 Blood Type A POSITIVE 04/18/19 13:56 Antibody Screen Negative 04/18/19 13:56 Active Medications - Current Medications Current Medications: Generic Name Dose Route Start Last Admin Trade Name Freq PRN Reason Stop Dose Admin Acetaminophen 650 mg 04/20/19 14:38 04/21/19 02:24 Tylenol FEEDTUBE 650 mg Q4H PRN Administration Pain, Mild (1-3) Lipase/Protease/Amylase 1 each 04/20/19 07:[address] 10,500 Unit FEEDTUBE PRN PRN For Clogged Feeding Tube Aspirin 325 mg 04/19/19 10:00 04/20/19 11:01 Aspirin PO Not Given QDAY TRINA Atorvastatin Calcium 40 mg 04/19/19 22:00 04/20/19 21:51 Lipitor PO Not Given QHS TRINA Dextrose 50 ml 04/18/19 14:00 D50w (25gm) Syringe IV PRN TRINA Famotidine 10 mg 04/19/19 10:00 04/20/19 21:45 Pepcid IV 10 mg BID TRINA Administration Hydromorphone HCl 0.5 mg 04/18/19 22:54 Dilaudid IV Q3H PRN Pain , Severe (7-10) Dextrose 1,000 mls @ 75 mls/hr 04/18/19 23:00 04/21/19 02:48 D5w IV 75 mls/hr DIRECT TRINA Administration Ceftriaxone Sodium 1 gm in 50 mls @ 100 mls/hr 04/19/19 10:00 04/20/19 11:00 Rocephin/Ns 1 Gm/50 Ml IV 100 mls/hr Q24HR TRINA Administration Protocol Sodium Chloride 100 mls @ 999 mls/hr 04/19/19 09:00 Nacl 0.9% IV SHANNAN PRN Hypotension Lorazepam 1 mg 04/20/19 14:31 04/20/19 14:38 Ativan IM 1 mg Q6H PRN Administration Agitation Metoclopramide HCl 2.5 mg 04/18/19 23:01 04/19/19 01:29 Reglan IV 2.5 mg Q6H PRN Administration Nausea And Vomiting Metoprolol Tartrate 12.5 mg 04/20/19 15:00 04/20/19 22:35 Metoprolol FEEDTUBE Not Given BID TRINA Morphine Sulfate 2 mg 04/18/19 22:54 Morphine IV Q4H PRN Pain, Moderate (4-6) Simple Syrup 15 ml 04/20/19 07:50 Simple Syrup FEEDTUBE PRN PRN Hypoglycemia Simple Syrup 30 ml 04/20/19 07:50 Simple Syrup FEEDTUBE PRN PRN Hypoglycemia Sodium Bicarbonate 325 mg 04/20/19 07:50 Sodium Bicarbonate FEEDTUBE PRN PRN For Clogged Feeding Tube Sodium Chloride 10 ml 04/19/19 10:00 04/20/19 21:45 Sodium Chloride Flush Syringe 10 Ml IV 10 ml BID TRINA Administration Sodium Chloride 10 ml 04/18/19 22:54 Sodium Chloride Flush Syringe 10 Ml IV PRN PRN LINE FLUSH Sodium Chloride 10 ml 04/19/19 07:31 Sodium Chloride Flush Syringe 10 Ml IV PRN PRN LINE FLUSH Nutrition/Malnutrition Assess - Dietary Evaluation Nutrition/Malnutrition Findings: Nutrition Notes Start: 04/19/19 10:46 Freq: Status: Active Protocol: Document 04/20/19 08:41 GINNA (Rec: 04/20/19 08:49 GINNA [id number]) Co-Sign 04/20/19 08:41 LP Nutrition Notes Initial or Follow up Reassessment Current Diagnosis CKD (stage V CKD),Hypertension ,Stroke Other Pertinent Diagnosis On HD Current Diet NPO Labs/Tests BUN 111 Cr 7.7 BG 275 Pertinent Medications D5W at 75 ml/hr Height 5 ft 5 in Weight 47.5 kg [place] Body Weight (kg) 56.81 BMI 17.4 Weight Status Underweight Subjective/Other Information MD consult for TF. Pt has a dobhoff placed. Using Nepro for ESRD. Percent of energy/protein needs met: 91%/100% Burn Absent Trauma Absent GI Symptoms None Difficulty In Swallowing Current % PO Negligible Minimum of two criteria Yes Energy Intake (severe) < or equal to 50% Estimated Energy Requirement > or equal to 5 days Body Fat Depletion Moderate depletion (severe) Muscle Mass Moderate Depletion (severe) #1 Nutrition Diagnosis Malnutrition Diagnosis Progress(for reassessment Continues documentation) Is patient on ventilator? No Is Patient Ambulatory and/or Out of Bed No [facility] 1207.104 Kcal/Kg value to use for calculation 35 Approximate Energy Requirements Using 1663 kcal/Kg Calculation Used for Recommendations Kcal/kg Additional Notes Protein: 57g (>1.2g/kg) Fluid: 9529-1660 ml or per MD Nutrition Intervention Change Diet Order: TF Nutrition Support: Nepro 1.8 at 35 ml/hr Water flush 150 ml Kcal 1,512 Protein (gm) 68 Fluid (mL) 611 Goal #1 TF start Goal #2 Meet at least 80% of energy and protein needs via TF Goal #3 Wt gain/maintenance Anticipated Discharge Needs: Unable to determine Follow-Up By: 04/22/19 Additional Comments F/U for TF start
[2019-04-21] MEDS: cefTRIAXone/NS 1 GM/50 ML 1 GM/50 ML BAG IV SCH (09:18)
[2019-04-21] MEDS: ASPIRIN 325 MG TAB PO SCH (09:18)
[2019-04-21] MEDS: FAMOTIDINE 20 MG/2 ML INJ IV SCH ×2 (09:18→23:35)
[2019-04-21] MEDS: METOPROLOL TARTRATE 25 MG TAB FEEDTUBE SCH ×2 (09:19→23:40)
[2019-04-21] MEDS ORDERED: SIMPLE SYRUP 15 ML FEEDTUBE PRN (13:13)
[2019-04-21] MEDS ORDERED: LIPASE 10,500/PROTEASE 25,000/AMYLASE 43,750 (UNITS) DR CAP FEEDTUBE PRN (13:13)
--- NOTE | 2019-04-21 15:25 | Progress Note ---
Assessment and Plan - Patient Problems (1) Failure to thrive in adult Current Visit: Yes Status: Acute Plan to address problem: Patient with severe protein calorie malnutrition and failure to thrive. I had a long discussion with 3 daughters about patient's condition. They need to anticipate the challenges ahead. I discussed that if patient would not have wanted a PEG tube placed, then she should go home without a PEG tube and just have oral swabs. They need to understand to anticipate not been able to feed her or hydrate her for a few days. Also she may need nursing assistance at home so they did not end up being in her back to the hospital. Daughters want to discuss among themselves about feeding tube and hospice. They will let us know what they decide. Emotional support provided. (2) Acute encephalopathy Current Visit: Yes Status: Acute Plan to address problem: Metabolic encephalopathy secondary to uremia and hypernatremia. Continue free water replacement. Intolerant of dialysis (3) Hypernatremia Current Visit: Yes Status: Acute Plan to address problem: Continue free water replacement and follow-up sodium. Nurse reports that Rosanne castillo's daughter refused labs being drawn. (4) ESRD (end stage renal disease) Current Visit: Yes Status: Chronic Plan to address problem: Patient intolerant of dialysis. She is DO NOT RESUSCITATE. She did not tolerate dialysis. Plan is not to do any more dialysis treatments. Comfort measures only. (5) Leukocytosis Current Visit: Yes Status: Acute Plan to address problem: Leukocytosis rule out sepsis. Cultures negative so far. Patient on empiric antibiotics Subjective Date of service: 04/21/19 Principal diagnosis: Neurogenic Dysphagia Interval history: Patient seen lying in bed. 3 Daughters at the bedside. She is not interacting. She is on oxygen via nasal cannula. Less dyspneic today. Daughters want to take her home. They do not want a PEG tube. They do not want have hospice to help them Objective - Exam Narrative Exam: Frail elderly female lying in bed in mild respiratory distress HEENT: NCAT, Neck: Supple, no venous distention CVS: S1S2 RRR with no murmur, rub or gallop Chest: Diminished breath sounds bilaterally Abdomen: Protuberant, soft, nontender, no organomegaly, bowel sounds are present Extremities: Severe muscle wasting Neuro: Nonverbal, Lethargic, not following commands and not opening eyes on request - Vital Signs Vital signs: Vital Signs - 12hr 04/21/19 04/21/19 04/21/19 07:16 10:00 13:16 Temperature 99.4 F 100.2 F H Pulse Rate 113 H 112 H 74 Respiratory 22 22 Rate Blood Pressure 140/60 145/55 O2 Sat by Pulse 96 96 Oximetry - Lab 04/19/19 03:45 04/19/19 06:40 Most recent lab results ABG pH 7.330 pH Units (7.350-7.450) L 04/18/19 14:14 ABG pCO2 46.7 mm Hg 04/18/19 14:14 ABG pO2 98.6 mm Hg (80.0-90.0) H 04/18/19 14:14 ABG HCO3 24.0 mmol/L (20.0-26.0) 04/18/19 14:14 ABG O2 Saturation 97.0 % (95.0-99.0) 04/18/19 14:14 Calcium 10.0 mg/dL (8.4-10.2) 04/19/19 06:40 Magnesium 3.20 mg/dL (1.7-2.3) H 04/18/19 13:56 Medications & Allergies - Medications Allergies/Adverse Reactions: Allergies Insulins Allergy (Verified 04/18/19 14:15) Hives iron Allergy (Verified 04/18/19 14:15) Hives isosorbide Allergy (Verified 04/18/19 14:15) Hives ondansetron [From Zofran] Allergy (Verified 04/18/19 14:15) Hives Home Medications: Home Medications Medication Instructions Recorded Confirmed Last Taken Type Amlodipine Besylate/Benazepril 5 mg PO DAILY 04/21/19 04/21/19 Unknown History [Lotrel 5-10 mg] Aspirin [Adult Aspirin] 81 mg PO 2XW 04/21/19 04/21/19 Unknown History Active Medications: Generic Name Dose Route Start Last Admin Trade Name Freq PRN Reason Stop Dose Admin Acetaminophen 650 mg 04/20/19 14:38 04/21/19 02:24 Tylenol FEEDTUBE 650 mg Q4H PRN Administration Pain, Mild (1-3) Lipase/Protease/Amylase 1 each 04/20/19 07:[address] 10,500 Unit FEEDTUBE PRN PRN For Clogged Feeding Tube Aspirin 325 mg 04/19/19 10:00 04/21/19 09:18 Aspirin PO 325 mg QDAY TRINA Administration Atorvastatin Calcium 40 mg 04/19/19 22:00 04/20/19 21:51 Lipitor PO Not Given QHS [facility] Dextrose 50 ml 04/18/19 14:00 D50w (25gm) Syringe IV PRN TRINA Famotidine 10 mg 04/19/19 10:00 04/21/19 09:18 Pepcid IV 10 mg BID TRINA Administration Hydromorphone HCl 0.5 mg 04/18/19 22:54 Dilaudid IV Q3H PRN Pain , Severe (7-10) Ceftriaxone Sodium 1 gm in 50 mls @ 100 mls/hr 04/19/19 10:00 04/21/19 09:18 Rocephin/Ns 1 Gm/50 Ml IV 100 mls/hr Q24HR TRINA Administration Protocol Sodium Chloride 100 mls @ 999 mls/hr 04/19/19 09:00 Nacl 0.9% IV SHANNAN PRN Hypotension Lorazepam 1 mg 04/20/19 14:31 04/20/19 14:38 Ativan IM 1 mg Q6H PRN Administration Agitation Metoclopramide HCl 2.5 mg 04/18/19 23:01 04/19/19 01:29 Reglan IV 2.5 mg Q6H PRN Administration Nausea And Vomiting Metoprolol Tartrate 12.5 mg 04/20/19 15:00 04/21/19 09:19 Metoprolol FEEDTUBE 12.5 mg BID TRINA Administration Morphine Sulfate 2 mg 04/18/19 22:54 Morphine IV Q4H PRN Pain, Moderate (4-6) Simple Syrup 15 ml 04/20/19 07:50 Simple Syrup FEEDTUBE PRN PRN Hypoglycemia Simple Syrup 30 ml 04/20/19 07:50 Simple Syrup FEEDTUBE PRN PRN Hypoglycemia Sodium Bicarbonate 325 mg 04/20/19 07:50 Sodium Bicarbonate FEEDTUBE PRN PRN For Clogged Feeding Tube Sodium Chloride 10 ml 04/19/19 10:00 04/21/19 09:20 Sodium Chloride Flush Syringe 10 Ml IV 10 ml BID TRINA Administration Sodium Chloride 10 ml 04/18/19 22:54 Sodium Chloride Flush Syringe 10 Ml IV PRN PRN LINE FLUSH Sodium Chloride 10 ml 04/19/19 07:31 Sodium Chloride Flush Syringe 10 Ml IV PRN PRN LINE FLUSH
[2019-04-21 15:31] LABS: Hematocrit 36.2 % (30.3-42.9); Mean Corpuscular HGB Conc 33 % (30-34); Mean Corpuscular Volume 87 fl (79-97); Platelet Count 137 K/mm3 (140-440); Red Blood Count 4.16 M/mm3 (3.65-5.03); Red Cell Distribution Width 18.1 % (13.2-15.2)
[2019-04-21 15:58] LABS: Albumin 1.9 g/dL (3.9-5); Calcium 10.1 mg/dL (8.4-10.2)
[2019-04-21 16:26] LABS: Basophils % (Manual) 0 % (0.0-1.8); Eosinophils % (Manual) 0 % (0.0-4.3); Platelet Estimate Consistent w Auto; Total Cells Counted 100
[2019-04-21 16:27] LABS: Anisocytosis 1+; Ovalocytes Rare
[2019-04-21] MEDS ORDERED: VANCOMYCIN/NS 1 GM/250 ML 1 GM/250 ML BAG IV ONE (18:06)
[2019-04-22] MEDS: ACETAMINOPHEN 325 MG/10.15 ML ORAL LIQD UNIT DOSE FEEDTUBE PRN (02:05)
[2019-04-22 07:30] LABS: Hematocrit 35.7 % (30.3-42.9); Hemoglobin 11.6 gm/dl (10.1-14.3); Mean Corpuscular HGB Conc 33 % (30-34); Mean Corpuscular Volume 88 fl (79-97); Red Blood Count 4.08 M/mm3 (3.65-5.03); Red Cell Distribution Width 18.5 % (13.2-15.2)
[2019-04-22 07:37] LABS: Calcium 9.3 mg/dL (8.4-10.2)
[2019-04-22] MEDS ORDERED: glipiZIDE 5 MG TAB PO SCH (08:00)
[2019-04-22 08:49] LABS: Anisocytosis Few; Basophils % (Manual) 0 % (0.0-1.8); Eosinophils % (Manual) 0 % (0.0-4.3); Ovalocytes Rare; Platelet Estimate Consistent w Auto; Total Cells Counted 100
[2019-04-22 08:51] LABS: Platelet Count 120 K/mm3 (140-440)
[2019-04-22] MEDS: FAMOTIDINE 20 MG/2 ML INJ IV SCH (09:01)
[2019-04-22] MEDS: ASPIRIN 325 MG TAB PO SCH (09:01)
[2019-04-22] MEDS: cefTRIAXone/NS 1 GM/50 ML 1 GM/50 ML BAG IV SCH (09:01)
[2019-04-22] MEDS ORDERED: GLIMEPIRIDE 2 MG TAB PO SCH (09:30)
[2019-04-22] MEDS: METOPROLOL TARTRATE 25 MG TAB FEEDTUBE SCH (10:21)
--- NOTE | 2019-04-22 10:55 | Progress Note ---
Assessment and Plan - Patient Problems (1) Failure to thrive Current Visit: Yes Status: Acute Plan to address problem: Patient with severe protein calorie malnutrition and failure to thrive. after discussion with the daughters, they expressed, that patient would not have wanted a PEG tube placed, she should go home without a PEG tube and just have o ral swabs. Daughters want to discuss among themselves about feeding tube and hospice. (2) Acute encephalopathy Current Visit: Yes Status: Acute Plan to address problem: Metabolic encephalopathy secondary to uremia and hypernatremia. Continue free water replacement. Intolerant of dialysis (3) Hypernatremia Current Visit: Yes Status: Acute Plan to address problem: Continue free water replacement and follow-up sodium. Nurse reports that Patient's daughter refused labs being drawn. (4) ESRD (end stage renal disease) Current Visit: Yes Status: Chronic Plan to address problem: Patient intolerant of dialysis. She is DO NOT RESUSCITATE. She did not tolerate dialysis. Plan is not to do any more dialysis treatments. Comfort measures only. (5) Leukocytosis Current Visit: Yes Status: Acute Plan to address problem: Leukocytosis rule out sepsis. Cultures negative so far. Patient on empiric antibiotics Subjective Date of service: 04/22/19 Principal diagnosis: Neurogenic Dysphagia Interval history: Pt remains chronically ill, lethargic Objective - Vital Signs Vital signs: Vital Signs - 12hr 04/21/19 04/22/19 04/22/19 23:40 01:54 01:55 Temperature 103 F H Pulse Rate 130 H 118 H Respiratory 24 Rate Blood Pressure 160/60 156/67 O2 Sat by Pulse 98 Oximetry 04/22/19 04/22/19 04/22/19 03:10 04:03 07:26 Temperature 98.6 F 98.6 F 102.5 F H Pulse Rate 105 H Respiratory 22 Rate Blood Pressure 110/43 O2 Sat by Pulse 93 Oximetry 04/22/19 04/22/19 04/22/19 08:30 08:36 10:21 Temperature Pulse Rate 105 H Respiratory Rate Blood Pressure 110/43 O2 Sat by Pulse 92 92 Oximetry - General Appearance General appearance: appears stated age, cachectic, chronically ill EENT: ATNC, mucous membranes dry Neck: no JVD Respiratory: Present: Decreased Breath Sounds Cardiology: regular, S1S2 Gastrointestinal: normoactive bowel sounds Integumentary: no rash Neurologic: confused, disoriented - Lab 04/22/19 06:51 04/22/19 06:51 Most recent lab results ABG pH 7.330 pH Units (7.350-7.450) L 04/18/19 14:14 ABG pCO2 46.7 mm Hg 04/18/19 14:14 ABG pO2 98.6 mm Hg (80.0-90.0) H 04/18/19 14:14 ABG HCO3 24.0 mmol/L (20.0-26.0) 04/18/19 14:14 ABG O2 Saturation 97.0 % (95.0-99.0) 04/18/19 14:14 Calcium 9.3 mg/dL (8.4-10.2) 04/22/19 06:51 Magnesium 2.40 mg/dL (1.7-2.3) H 04/21/19 14:55 Medications & Allergies - Medications Allergies/Adverse Reactions: Allergies Insulins Allergy (Verified 04/18/19 14:15) Hives iron Allergy (Verified 04/18/19 14:15) Hives isosorbide Allergy (Verified 04/18/19 14:15) Hives ondansetron [From Zofran] Allergy (Verified 04/18/19 14:15) Hives Home Medications: Home Medications Medication Instructions Recorded Confirmed Last Taken Type Amlodipine Besylate/Benazepril 5 mg PO DAILY 04/21/19 04/21/19 Unknown History [Lotrel 5-10 mg] Aspirin [Adult Aspirin] 81 mg PO 2XW 04/21/19 04/21/19 Unknown History Active Medications: Generic Name Dose Route Start Last Admin Trade Name Freq PRN Reason Stop Dose Admin Acetaminophen 650 mg 04/20/19 14:38 04/22/19 02:05 Tylenol FEEDTUBE 650 mg Q4H PRN Administration Pain, Mild (1-3) Lipase/Protease/Amylase 1 each 04/20/19 07:50 Pancreaze 10,500 Unit FEEDTUBE PRN PRN For Clogged Feeding Tube Aspirin 325 mg 04/19/19 10:00 04/22/19 09:01 Aspirin PO 325 mg QDAY TRINA Administration Atorvastatin Calcium 40 mg 04/19/19 22:00 04/21/19 23:36 Lipitor PO 40 mg QHS TRINA Administration Dextrose 50 ml 04/18/19 14:00 D50w (25gm) Syringe IV PRN TRINA Famotidine 10 mg 04/19/19 10:00 04/22/19 09:01 Pepcid IV 10 mg BID TRINA Administration Glimepiride 2 mg 04/22/19 09:30 04/22/19 09:09 Amaryl PO 2 mg QDDIAB TRINA Administration Hydromorphone HCl 0.5 mg 04/18/19 22:54 Dilaudid IV Q3H PRN Pain , Severe (7-10) Ceftriaxone Sodium 1 gm in 50 mls @ 100 mls/hr 04/19/19 10:00 04/22/19 09:01 Rocephin/Ns 1 Gm/50 Ml IV 100 mls/hr Q24HR TRINA Administration Protocol Sodium Chloride 100 mls @ 999 mls/hr 04/19/19 09:00 Nacl 0.9% IV SHANNAN PRN Hypotension Lorazepam 1 mg 04/20/19 14:31 04/20/19 14:38 Ativan IM 1 mg Q6H PRN Administration Agitation Metoclopramide HCl 2.5 mg 04/18/19 23:01 04/19/19 01:29 Reglan IV 2.5 mg Q6H PRN Administration Nausea And Vomiting Metoprolol Tartrate 12.5 mg 04/20/19 15:00 04/22/19 10:21 Metoprolol FEEDTUBE Not Given BID TRINA Morphine Sulfate 2 mg 04/18/19 22:54 Morphine IV Q4H PRN Pain, Moderate (4-6) Simple Syrup 15 ml 04/20/19 07:50 Simple Syrup FEEDTUBE PRN PRN Hypoglycemia Simple Syrup 30 ml 04/20/19 07:50 Simple Syrup FEEDTUBE PRN PRN Hypoglycemia Sodium Bicarbonate 325 mg 04/20/19 07:50 Sodium Bicarbonate FEEDTUBE PRN PRN For Clogged Feeding Tube Sodium Chloride 10 ml 04/19/19 10:00 04/22/19 09:10 Sodium Chloride Flush Syringe 10 Ml IV 10 ml BID TRINA Administration Sodium Chloride 10 ml 04/19/19 07:31 Sodium Chloride Flush Syringe 10 Ml IV PRN PRN LINE FLUSH
--- NOTE | 2019-04-22 11:12 | Progress Note ---
Assessment and Plan Assessment and plan: --Severe hyper glycemia/diabetes mellitus Patient is allergic to insulin, add low-dose oral hypoglycemics Monitor blood sugars are just as needed Tube Feeding Glucerna --Severe Hypernatremia Current Visit: Yes Status: Acute D5W, monitor electrolytes ,management per nephrology. Mild improvement of electrolytes --Sepsis Current Visit: Yes Status: Acute Empiric abx, urine cultures enterococcus Order 1 dose of vancomycin -- Acute metabolic encephalopathy Current Visit: Yes Status: Acute Multifactorial , history of CVA Hyponatremia , sepsis, Uremia -- ESRD (end stage renal disease) Current Visit: Yes Status: Chronic Patient was scheduled for hemodialysis however stopped by nephrology as patient had agonal breathing and became tachycardic and tachypneic She does not a candidate for hemodialysis, nephrology recommended hospice Discussed extensively with the family --Acute CVA (cerebrovascular accident) Current Visit: Yes Status: Acute CVA w/u, follow neurology evaluation and recommendations Patient is unstable for any CVA workup --Dysphagia Current Visit: Yes Status: Acute Speech evaln, GI consult. Not a candidate for GI workup Continue Dobbhoff feeds ,Possible PEG tube[family not decided] --Severe malnutrition; hypoalbuminemia nutrition supplements, treat underlying cause, tube feeding -- DVT prophylaxis-- Current Visit: Yes Status: Acute . Heparin --DO NOT RESUSCITATE status Patient is critically ill, poor prognosis, Recommended hospice. The patient's daughters refused stating They had bad experience with hospice services for their father . The patient's daughters at the bedside, patient's condition poor prognosis Discussed with them answered all their questions, they do not want hospice Hospitalist Physical - Constitutional Vitals: Temp Pulse Resp BP Pulse Ox 102.5 F H 105 H 22 110/43 92 04/22/19 07:26 04/22/19 10:21 04/22/19 07:26 04/22/19 10:21 04/22/19 08:36 General appearance: Present: mild distress, cachectic, disheveled, other (unresponsive ,noncommunicative) Results - Labs CBC & Chem 7: 04/22/19 06:51 04/22/19 06:51 Labs: Laboratory Last Values WBC 19.6 K/mm3 (4.5-11.0) H 04/22/19 06:51 RBC 4.08 M/mm3 (3.65-5.03) 04/22/19 06:51 Hgb 11.6 gm/dl (10.1-14.3) 04/22/19 06:51 Hct 35.7 % (30.3-42.9) 04/22/19 06:51 MCV 88 fl (79-97) 04/22/19 06:51 MCH 29 pg (28-32) 04/22/19 06:51 MCHC 33 % (30-34) 04/22/19 06:51 RDW 18.5 % (13.2-15.2) H 04/22/19 06:51 Plt Count 120 K/mm3 (140-440) L 04/22/19 06:51 Add Manual Diff Complete 04/22/19 06:51 Total Counted 100 04/22/19 06:51 Seg Neutrophils % Bowstring Maker 04/22/19 06:51 Seg Neuts % (Manual) 99.0 % (40.0-70.0) H 04/22/19 06:51 Band Neutrophils % 0 % 04/22/19 06:51 Lymphocytes % (Manual) 0 % (13.4-35.0) L 04/22/19 06:51 Reactive Lymphs % (Man) 0 % 04/22/19 06:51 Monocytes % (Manual) 1.0 % (0.0-7.3) 04/22/19 06:51 Eosinophils % (Manual) 0 % (0.0-4.3) 04/22/19 06:51 Basophils % (Manual) 0 % (0.0-1.8) 04/22/19 06:51 Metamyelocytes % 0 % 04/22/19 06:51 Myelocytes % 0 % 04/22/19 06:51 Promyelocytes % 0 % 04/22/19 06:51 Blast Cells % 0 % 04/22/19 06:51 Nucleated RBC % Not Reportable 04/22/19 06:51 Seg Neutrophils # Man 19.4 K/mm3 (1.8-7.7) H 04/22/19 06:51 Band Neutrophils # 0.0 K/mm3 04/22/19 06:51 Lymphocytes # (Manual) 0.0 K/mm3 (1.2-5.4) L 04/22/19 06:51 Abs React Lymphs (Man) 0.0 K/mm3 04/22/19 06:51 Monocytes # (Manual) 0.2 K/mm3 (0.0-0.8) 04/22/19 06:51 Eosinophils # (Manual) 0.0 K/mm3 (0.0-0.4) 04/22/19 06:51 Basophils # (Manual) 0.0 K/mm3 (0.0-0.1) 04/22/19 06:51 Metamyelocytes # 0.0 K/mm3 04/22/19 06:51 Myelocytes # 0.0 K/mm3 04/22/19 06:51 Promyelocytes # 0.0 K/mm3 04/22/19 06:51 Blast Cells # 0.0 K/mm3 04/22/19 06:51 WBC Morphology Not Reportable 04/22/19 06:51 Hypersegmented Neuts Not Reportable 04/22/19 06:51 Hyposegmented Neuts Not Reportable 04/22/19 06:51 Hypogranular Neuts Not Reportable 04/22/19 06:51 Smudge Cells Not Reportable 04/22/19 06:51 Toxic Granulation Not Reportable 04/22/19 06:51 Toxic Vacuolation Not Reportable 04/22/19 06:51 Dohle Bodies Not Reportable 04/22/19 06:51 Pelger-Huet Anomaly Not Reportable 04/22/19 06:51 Troy Rods Not Reportable 04/22/19 06:51 Platelet Estimate Consistent w auto 04/22/19 06:51 Clumped Platelets Not Reportable 04/22/19 06:51 Plt Clumps, EDTA Not Reportable 04/22/19 06:51 Large Platelets Not Reportable 04/22/19 06:51 Giant Platelets Not Reportable 04/22/19 06:51 Platelet Satelliting Not Reportable 04/22/19 06:51 Plt Morphology Comment Not Reportable 04/22/19 06:51 RBC Morphology Not Reportable 04/22/19 06:51 Dimorphic RBCs Not Reportable 04/22/19 06:51 Polychromasia Not Reportable 04/22/19 06:51 Hypochromasia Not Reportable 04/22/19 06:51 Poikilocytosis Not Reportable 04/22/19 06:51 Anisocytosis Few 04/22/19 06:51 Microcytosis Not Reportable 04/22/19 06:51 Macrocytosis Not Reportable 04/22/19 06:51 Spherocytes Not Reportable 04/22/19 06:51 Pappenheimer Bodies Not Reportable 04/22/19 06:51 Sickle Cells Not Reportable 04/22/19 06:51 Target Cells Not Reportable 04/22/19 06:51 Tear Drop Cells Not Reportable 04/22/19 06:51 Ovalocytes Rare 04/22/19 06:51 Stomatocytes Few 04/18/19 13:56 Helmet Cells Not Reportable 04/22/19 06:51 Das-Ogden Bodies Not Reportable 04/22/19 06:51 [place] Rings Not Reportable 04/22/19 06:51 Shahbaz Cells Not Reportable 04/22/19 06:51 Bite Cells Not Reportable 04/22/19 06:51 Crenated Cell Not Reportable 04/22/19 06:51 Elliptocytes Not Reportable 04/22/19 06:51 Acanthocytes (Spur) Not Reportable 04/22/19 06:51 Rouleaux Not Reportable 04/22/19 06:51 Hemoglobin C Crystals Not Reportable 04/22/19 06:51 Schistocytes Not Reportable 04/22/19 06:51 Malaria parasites Not Reportable 04/22/19 06:51 Cornell Bodies Not Reportable 04/22/19 06:51 Hem Pathologist Commnt No 04/22/19 06:51 PT 15.4 Sec. (12.2-14.9) H 04/18/19 13:56 INR 1.20 (0.87-1.13) H 04/18/19 13:56 APTT 26.7 Sec. (24.2-36.6) 04/18/19 13:56 ABG pH 7.330 pH Units (7.350-7.450) L 04/18/19 14:14 ABG pCO2 46.7 mm Hg 04/18/19 14:14 ABG pO2 98.6 mm Hg (80.0-90.0) H 04/18/19 14:14 ABG HCO3 24.0 mmol/L (20.0-26.0) 04/18/19 14:14 ABG O2 Saturation 97.0 % (95.0-99.0) 04/18/19 14:14 ABG O2 Content 19.6 (0.0-44) 04/18/19 14:14 ABG Base Excess -2.2 mmol/L (-2.0-3.0) L 04/18/19 14:14 ABG Hemoglobin 14.6 gm/dl (12.0-16.0) 04/18/19 14:14 ABG Carboxyhemoglobin 1.2 % (0.0-5.0) 04/18/19 14:14 ABG Methemoglobin 0.6 % (0.0-1.5) 04/18/19 14:14 Oxyhemoglobin 95.3 % (95.0-99.0) 04/18/19 14:14 FiO2 100 % 04/18/19 14:14 Sodium 140 mmol/L (137-145) 04/22/19 06:51 Potassium 5.7 mmol/L (3.6-5.0) H D 04/22/19 06:51 Chloride 103.3 mmol/L (98-107) 04/22/19 06:51 Carbon Dioxide 13 mmol/L (22-30) L 04/22/19 06:51 Anion Gap 29 mmol/L 04/22/19 06:51 BUN 167 mg/dL (7-17) H 04/22/19 06:51 Creatinine 8.2 mg/dL (0.7-1.2) H 04/22/19 06:51 Estimated GFR 5 ml/min 04/22/19 06:51 BUN/Creatinine Ratio 20 % 04/22/19 06:51 Glucose 631 mg/dL (65-100) H* 04/22/19 06:51 POC Glucose > 500 (70-105) H 04/22/19 06:25 Hemoglobin A1c 5.8 % (4-6) 04/19/19 00:04 Lactic Acid 1.70 mmol/L (0.7-2.0) 04/18/19 16:24 Calcium 9.3 mg/dL (8.4-10.2) 04/22/19 06:51 Magnesium 2.40 mg/dL (1.7-2.3) H 04/21/19 14:55 Total Bilirubin 0.20 mg/dL (0.1-1.2) 04/21/19 14:55 AST 29 units/L (5-40) 04/21/19 14:55 ALT 71 units/L (7-56) H 04/21/19 14:55 Alkaline Phosphatase 83 units/L (35-129) 04/21/19 14:55 Ammonia 78.0 umol/L (25-60) H 04/19/19 00:04 Total Creatine Kinase 94 units/L (30-135) 04/18/19 13:56 Troponin T 2.840 ng/mL (0.00-0.029) H* 04/18/19 13:56 Total Protein 5.4 g/dL (6.3-8.2) L 04/21/19 14:55 Albumin 1.9 g/dL (3.9-5) L 04/21/19 14:55 Albumin/Globulin Ratio 0.5 % 04/21/19 14:55 Triglycerides 289 mg/dL (2-149) H 04/18/19 13:56 Cholesterol 259 mg/dL (50-199) H 04/18/19 13:56 LDL Cholesterol Direct 166 mg/dL (50-130) H 04/18/19 13:56 HDL Cholesterol 29 mg/dL (40-59) L 04/18/19 13:56 Cholesterol/HDL Ratio 8.93 % 04/18/19 13:56 TSH 0.322 mlU/mL (0.270-4.200) 04/18/19 13:56 Free T4 1.33 ng/dL (0.76-1.46) 04/18/19 13:56 Urine Color Yellow (Yellow) 04/18/19 16:37 Urine Turbidity Cloudy (Clear) 04/18/19 16:37 Urine pH 5.0 (5.0-7.0) 04/18/19 16:37 Ur Specific [place] 1.014 (1.003-1.030) 04/18/19 16:37 Urine Protein 100 mg/dl mg/dL (Negative) 04/18/19 16:37 Urine Glucose (UA) 50 mg/dL (Negative) 04/18/19 16:37 Urine Ketones Neg mg/dL (Negative) 04/18/19 16:37 Urine Blood Neg (Negative) 04/18/19 16:37 Urine Nitrite Neg (Negative) 04/18/19 16:37 Urine Bilirubin Neg (Negative) 04/18/19 16:37 Urine Urobilinogen < 2.0 mg/dL (<2.0) 04/18/19 16:37 Ur Leukocyte Esterase Neg (Negative) 04/18/19 16:37 Urine WBC (Auto) 1.0 /HPF (0.0-6.0) 04/18/19 16:37 Urine RBC (Auto) 1.0 /HPF (0.0-6.0) 04/18/19 16:37 U Epithel Cells (Auto) 9.0 /HPF (0-13.0) 04/18/19 16:37 Urine Mucus Few /HPF 04/18/19 16:37 Salicylates < 0.3 mg/dL (2.8-20.0) L 04/18/19 13:56 Urine Opiates Screen Presumptive negative 04/18/19 16:37 Urine Methadone Screen Presumptive negative 04/18/19 16:37 Acetaminophen < 5.0 ug/mL (10.0-30.0) L 04/18/19 13:56 Ur Barbiturates Screen Presumptive negative 04/18/19 16:37 Ur Phencyclidine Scrn Presumptive negative 04/18/19 16:37 Ur Amphetamines Screen Presumptive negative 04/18/19 16:37 U Benzodiazepines Scrn Presumptive negative 04/18/19 16:37 Urine Cocaine Screen Presumptive negative 04/18/19 16:37 U Marijuana (THC) Screen Presumptive negative 04/18/19 16:37 Drugs of Abuse Note Disclamer 04/18/19 16:37 Plasma/Serum Alcohol < 0.01 % (0-0.07) 04/18/19 13:56 Hepatitis A IgM Ab Non-reactive (NonReactive) 04/19/19 06:40 Hep Bs Antigen Non-reactive (Negative) 04/19/19 06:40 Hep B Core IgM Ab Non-reactive (NonReactive) 04/19/19 06:40 Hepatitis C Antibody Non-reactive (NonReactive) 04/19/19 06:40 Blood Type A POSITIVE 04/18/19 13:56 Antibody Screen Negative 04/18/19 13:56 Active Medications - Current Medications Current Medications: Generic Name Dose Route Start Last Admin Trade Name Freq PRN Reason Stop Dose Admin Acetaminophen 650 mg 04/20/19 14:38 04/22/19 02:05 Tylenol FEEDTUBE 650 mg Q4H PRN Administration Pain, Mild (1-3) Lipase/Protease/Amylase 1 each 04/20/19 07:50 Pancrealexandro Rivas 10,500 Unit FEEDTUBE PRN PRN For Clogged Feeding Tube Aspirin 325 mg 04/19/19 10:00 04/22/19 09:01 Aspirin PO 325 mg QDAY TRINA Administration Atorvastatin Calcium 40 mg 04/19/19 22:00 04/21/19 23:36 Lipitor PO 40 mg QHS TRINA Administration Dextrose 50 ml 04/18/19 14:00 D50w (25gm) Syringe IV PRN TRINA Famotidine 10 mg 04/19/19 10:00 04/22/19 09:01 Pepcid IV 10 mg BID TRINA Administration Glimepiride 2 mg 04/22/19 09:30 04/22/19 09:09 Amaryl PO 2 mg QDDIAB TRINA Administration Hydromorphone HCl 0.5 mg 04/18/19 22:54 Dilaudid IV Q3H PRN Pain , Severe (7-10) Ceftriaxone Sodium 1 gm in 50 mls @ 100 mls/hr 04/19/19 10:00 04/22/19 09:01 Rocephin/Ns 1 Gm/50 Ml IV 100 mls/hr Q24HR TRINA Administration Protocol Sodium Chloride 100 mls @ 999 mls/hr 04/19/19 09:00 Nacl 0.9% IV SHANNAN PRN Hypotension Lorazepam 1 mg 04/20/19 14:31 04/20/19 14:38 Ativan IM 1 mg Q6H PRN Administration Agitation Metoclopramide HCl 2.5 mg 04/18/19 23:01 04/19/19 01:29 Reglan IV 2.5 mg Q6H PRN Administration Nausea And Vomiting Metoprolol Tartrate 12.5 mg 04/20/19 15:00 04/22/19 10:21 Metoprolol FEEDTUBE Not Given BID RTINA Morphine Sulfate 2 mg 04/18/19 22:54 Morphine IV Q4H PRN Pain, Moderate (4-6) Simple Syrup 15 ml 04/20/19 07:50 Simple Syrup FEEDTUBE PRN PRN Hypoglycemia Simple Syrup 30 ml 04/20/19 07:50 Simple Syrup FEEDTUBE PRN PRN Hypoglycemia Sodium Bicarbonate 325 mg 04/20/19 07:50 Sodium Bicarbonate FEEDTUBE PRN PRN For Clogged Feeding Tube Sodium Chloride 10 ml 04/19/19 10:00 04/22/19 09:10 Sodium Chloride Flush Syringe 10 Ml IV 10 ml BID TRINA Administration Sodium Chloride 10 ml 04/19/19 07:31 Sodium Chloride Flush Syringe 10 Ml IV PRN PRN LINE FLUSH Nutrition/Malnutrition Assess - Dietary Evaluation Nutrition/Malnutrition Findings: Nutrition Notes Start: 04/19/19 10:46 Freq: Status: Active Protocol: Document 04/20/19 08:41 GINNA (Rec: 04/20/19 08:49 GINNA [id number]) Co-Sign 04/20/19 08:41 LP Nutrition Notes Initial or Follow up Reassessment Current Diagnosis CKD (stage V CKD),Hypertension ,Stroke Other Pertinent Diagnosis On HD Current Diet NPO Labs/Tests BUN 111 Cr 7.7 BG 275 Pertinent Medications D5W at 75 ml/hr Height 5 ft 5 in Weight 47.5 kg [place] Body Weight (kg) 56.81 BMI 17.4 Weight Status Underweight Subjective/Other Information MD consult for TF. Pt has a dobhoff placed. Using Nepro for ESRD. Percent of energy/protein needs met: 91%/100% Burn Absent Trauma Absent GI Symptoms None Difficulty In Swallowing Current % PO Negligible Minimum of two criteria Yes Energy Intake (severe) < or equal to 50% Estimated Energy Requirement > or equal to 5 days Body Fat Depletion Moderate depletion (severe) Muscle Mass Moderate Depletion (severe) #1 Nutrition Diagnosis Malnutrition Diagnosis Progress(for reassessment Continues documentation) Is patient on ventilator? No Is Patient Ambulatory and/or Out of Bed No REE-([facility]-confined to bed) 1207.104 Kcal/Kg value to use for calculation 35 Approximate Energy Requirements Using 1663 kcal/Kg Calculation Used for Recommendations Kcal/kg Additional Notes Protein: 57g (>1.2g/kg) Fluid: 3466-3951 ml or per MD Nutrition Intervention Change Diet Order: TF Nutrition Support: Nepro 1.8 at 35 ml/hr Water flush 150 ml Kcal 1,512 Protein (gm) 68 Fluid (mL) 611 Goal #1 TF start Goal #2 Meet at least 80% of energy and protein needs via TF Goal #3 Wt gain/maintenance Anticipated Discharge Needs: Unable to determine Follow-Up By: 04/22/19 Additional Comments F/U for TF start
[2019-04-22] MEDS ORDERED: ACETAMINOPHEN 325 MG TAB PO PRN (11:43)
[2019-04-22 14:02] VITALS: BP 131/59
--- NOTE | 2019-04-22 16:26 | Discharge Summary ---
Providers - Providers Date of Admission: 04/18/19 17:40 Date of discharge: 04/22/19 Attending physician: SHERRY DENNISON 04/18/19 15:07 Consult to Physician [CONS] Urgent Comment: DR JENNIFER FAIRCHILD W/DR RICHTER @[id number] Consulting Provider: ARCELIA RICHTER Physician Instructions: Reason For Exam: esrd 04/18/19 22:58 Consult to Physician [CONS] Routine Comment: Consulting Provider: NEIL KENT Physician Instructions: Reason For Exam: Dysphagia 04/19/19 Consult to Physician [CONS] Routine Comment: noted/ krysten Consulting Provider: ANGELINA GÓMEZ Physician Instructions: Reason For Exam: CVA 04/19/19 07:31 Occupational Therapy Evaluate and Treat [CONS] Routine Comment: Reason For Exam: Neuro deficits Physical Therapy Evaluation and Treat [CONS] Routine Comment: Reason For Exam: Neuro deficits 04/20/19 07:50 Consult to Dietitian/Nutrition [CONS] Routine Physician Instructions: Assess nutrtn needs, initiate, modify, manage TF Reason For Exam: Reason for Consult: Write/Manage Tube Feeding Reason for Consult: Write/Manage Tube Feeding 04/21/19 13:14 Consult to Dietitian/Nutrition [CONS] Routine Physician Instructions: Assess nutrtn needs, initiate, modify, manage TF Reason For Exam: Reason for Consult: Write/Manage Tube Feeding Reason for Consult: Write/Manage Tube Feeding 04/22/19 00:39 Consult to Wound/ET Nurse [CONS] Routine Reason For Exam: wound eval Primary care physician: [facility] MD NEAL Hospitalization Condition: Serious Disposition: DC-01 TO HOME OR SELFCARE Time spent for discharge: 32 min Core Measure Documentation - Palliative Care Palliative Care/ Comfort Measures: Palliative Care/Comfort Measures Exam - Constitutional Vitals: Temp Pulse Resp BP Pulse Ox 99.1 F 61 20 131/59 97 04/22/19 12:47 04/22/19 12:47 04/22/19 12:47 04/22/19 12:47 04/22/19 12:47 Plan Additional Instructions: Family requested comfort care only. Family refused h ospice services. He refused PEG tube placement. Family refused dialysis. Family refused blood work. Family refused tube feeding in the hospital. Advised to use oxygen as needed Follow up with: NEAL MCDONALDMANTENO MD YURIY [Primary Care Provider] - 7 Days Prescriptions: Acetaminophen [Tylenol] 325 mg MI Q6HR PRN #30 supp PRN Reason: Pain
== END 2019-04-22 19:45 | disposition home or self-care (01) | DRG 871 ==
LOC: ED 13:31 → 2B-ACE 17:40
PROVIDERS: ADMIT Internal Medicine; ATTEND Internal Medicine
PROC: 4A033R1 Measurement of Arterial Saturation, Peripheral, Percutaneous Approach (ICD-10-PCS; principal; 2019-04-18)
PROC: 5A1D70Z Performance of Urinary Filtration, Intermittent, Less than 6 Hours Per Day (ICD-10-PCS; 2019-04-19)
DX: A41.9 Sepsis, unspecified organism (principal); G93.41 Metabolic encephalopathy; E43 Unspecified severe protein-calorie malnutrition; N18.6 End stage renal disease; E87.0 Hyperosmolality and hypernatremia; Z68.1 Body mass index [BMI] 19.9 or less, adult; E11.65 Type 2 diabetes mellitus with hyperglycemia; I10 Essential (primary) hypertension; Z66 Do not resuscitate; R13.19 Other dysphagia; R62.7 Adult failure to thrive; E88.09 Other disorders of plasma-protein metabolism, not elsewhere classified; Z88.2 Allergy status to sulfonamides; Z88.8 Allergy status to other drugs, medicaments and biological substances; Z82.49 Family history of ischemic heart disease and other diseases of the circulatory system; Z86.73 Personal history of transient ischemic attack (TIA), and cerebral infarction without residual deficits; Z99.2 Dependence on renal dialysis
CPT/HCPCS: 36415; 70450; 71045; 74018; 74176; 80048; 80053; 80061; 80074; 80307; 80320; 81001; 82140; 82550; 82803; 82962; 83036; 83735; 84439; 84443; 84484; 85007; 85025; 85610; 85730; 86850; 86900; 86901; 87040; 87076; 87086; 87186; 93005; 93010; 93306; 94760; 95819; 96374; G0378; A9270-GY; G0480; J0696; J2060; J2765; J3370; J7030; J7050; J7070